=== PATIENT | male | born 1955 | race Caucasian/White ===

== ENCOUNTER 2018-08-02 22:25 | Emergency (ER) | payer SELFPAY ==
--- NOTE | 2018-08-02 22:47 | EDPHY ---
H & P Stated Complaint: G tube pulled out Time Seen by Provider: 08/02/18 22:31 HPI/ROS: HPI The patient presents with peg tube displacement which occurred at about 21:45 today. He was sleeping on a new mattress and slipped on a slippery surface falling out of bed. Nurses suspect that during this time tube was dislodged. The patient has no complaints. He receives Jevity tube feeds multiple times a day for dysphasia related to recent ischemic CVA. It appears that he has been at [facility] as for the past several weeks recovering from his CVA. He is brought in by ambulance. REVIEW OF SYSTEMS 10 systems were reviewed and negative with the exception of the elements mentioned in the history of present illness. PMHx: History of CVA with resultant dysphagia, aphasia, cortical blindness, hypertension, history of AAA Soc Hx: Currently resides at [facility], history of smoking PHYSICAL General Appearance: Alert, no distress Eyes: Pupils equal and round no pallor or injection ENT, Mouth: Mucous membranes moist Respiratory: There are no retractions, lungs are clear to auscultation Cardiovascular: Regular rate and rhythm Gastrointestinal: Abdomen is soft and non-tender, stoma site to left of midline measures about 5 mm with surrounding erythema Neurological: Alert, disoriented, moves all extremities Skin: Warm and dry, no rashes Musculoskeletal: Neck is supple non tender Extremities: symmetrical, full range of motion Psychiatric: there is no agitation Source: Patient, [facility] records, Old records Exam Limitations: Physical impairment - Personal History Current Tetanus Diphtheria and Acellular Pertussis (TDAP): Yes - Medical/Surgical History Hx Asthma: No Hx Chronic Respiratory Disease: No Hx Diabetes: No Hx Cardiac Disease: No Hx Renal Disease: No Hx Cirrhosis: No Hx Alcoholism: No Hx HIV/AIDS: No Hx Splenectomy or Spleen Trauma: No Other PMH: AAA repair, Cerebral infarct, dysphagia, cortical blindness, aphasia , HTN - Social History Smoking Status: Unknown if ever smoked Constitutional: Initial Vital Signs Heart Rate 96 08/02/18 22:31 Respiratory Rate 16 08/02/18 22:31 Blood Pressure 150/85 H 08/02/18 22:31 O2 Sat (%) 96 08/02/18 22:31 O2 Delivery Mode Room Air Allergies/Adverse Reactions: No Known Allergies Allergy (Unverified 08/02/18 22:36) Home Medications: Medication Instructions Recorded Amlodipine Besylate 08/02/18 Aspirin 81mg (*) 08/02/18 Pantoprazole Sodium 08/02/18 Medical Decision Making - Diagnostics Imaging Results: Imaging Impressions Abdomen X-Ray 08/02/18 23:00 Impression: 1. Gastrostomy tube in gastric lumen. 2. No extravasation of contrast or bowel obstruction. Imaging: Discussed imaging studies w/ news wire photo operator Radiologist, I viewed and interpreted images myself Procedures: Peg tube replacement. Procedure: Skin was prepped with alcohol. A PEG tube, 24 [place] was inserted using ample Surgilube without difficulty into the stoma. KUB was obtained demonstrating proper placement of PEG tube. Differential Diagnosis: 63-year-old man, resident of [facility] with PEG tube in place due to dysphagia from recent CVA presents with dislodgement of PEG tube during a fall out of his bed. He does not appear to have sustained any other injuries during this time. In the emergency department, PEG tube was replaced by me without difficulty. [facility] Departure - Departure Disposition: Home, Routine, Self-Care Clinical Impression: PEG tube malfunction Condition: Good Instructions: How to Use and Care for Your PEG Tube (ED), Tube Feeding (DC) Referrals: JASON QUARLES [Primary Care Provider] - As per Instructions
[2018-08-03 00:17] VITALS: BP 146/82
== END 2018-08-03 00:17 | disposition home or self-care (01) ==
LOC: EDUNIT#
PROC: 0DH63UZ Insertion of Feeding Device into Stomach, Percutaneous Approach (ICD-10-PCS; principal; 2018-08-02)
DX: K94.23 Gastrostomy malfunction (principal); W06.XXXA Fall from bed, initial encounter; Y93.84 Activity, sleeping; Y92.89 Other specified places as the place of occurrence of the external cause

== ENCOUNTER 2018-08-18 11:54 | Emergency (ER) | payer SELFPAY ==
[2018-08-18 12:37] LABS: PLATELET COUNT 387 10^3/uL (150-400)
[2018-08-18] MEDS ORDERED: NS 1,000 ML IV ONE (12:42)
--- NOTE | 2018-08-18 12:45 | EDPHY ---
HPI/HX/ROS/PE/MDM Narrative: CLINICAL IMPRESSION: Possible GI bleed with normal ED evaluation ASSESSMENT/PLAN: 63-year-old male presents to the emergency department by ambulance from [facility] where he is recovering from a cerebral ischemic stroke for concerns of possible GI bleed. There are conflicting reports from [facility] that patient had coffee-ground emesis this morning although patient reports to me that he has had no vomiting, and he has no clinical signs of hematemesis or intraoral bleeding. Stools are soft brown with no evidence of melena. Abdomen is soft with no focal peritoneal findings. Vital signs are stable, no tachycardia or hypotension. Patient is mildly anemic with no prior labs available for comparison. J-tube in place with no evidence of infection or bleeding. Patient reports no epistaxis. He has no physical complaints on exam. I recommended follow-up with primary care, close observation at [facility], warning signs return to ED sooner outlined and discharge. DIFFERENTIAL DX: Differential diagnosis includes but not limited to GI bleed, weakness, dehydration, acute abdominal pain ED PROCEDURES: See lab results below CHIEF COMPLAINT: Possible GI bleed HPI: This is a 63-year-old male with past history of cerebellar CVA, currently residing at [facility], presents to the emergency department by ambulance today with concerns of a"possible GI bleed". According to EMS, there was apparently some concern about coffee ground emesis earlier this morning. Patient did not arrive in the ED until nearly 11 30. He has no physical complaints on arrival. He reports he has not vomited. He is incontinent and wears a diaper but does not report any bloody stools. He receives J-tube feeds and has not noted any bloody discharge from his tube. No reports of abdominal pain, fever, chest pain or shortness of breath. PMH: AAA repair, cerebral infarct, dysphagia, cortical blindness, aphasia, hypertension Pertinent Past Surgical History: AAA repair, J tube Family History: Unable to obtain Social History: Currently resides at [facility], very poor historian REVIEW OF SYSTEMS: All other systems negative Constitutional: No fever, no chills, appetite change. ENT: No epistaxis or sore throat Cardiovascular: No chest pain, no palpitations. Respiratory: No cough, no shortness of breath. Gastrointestinal: No abdominal pain, no vomiting, diarrhea. Genitourinary: No hematuria, dysuria, flank pain, pelvic pain Musculoskeletal: No back pain, joint swelling, joint pain, myalgias. Skin: No rashes, color change. Neurological: No headache, dizziness, weakness. PHYSICAL EXAM: General Appearance: Alert, oriented, appropriate, cooperative, NAD, well hydrated, non-toxic appearing, VSS, no hypoxia, very poor historian. HEENT: Oropharynx clear is no erythema or exudates, no tonsillar hypertrophy or asymmetry. Dentition without abnormality. Neck: Supple, nontender, no lymphadenopathy, no midline pain, FROM, no meningismus. Respiratory: There are no retractions, lungs are clear to auscultation. Cardiac: Regular rate and rhythm, no murmurs or gallops. Gastrointestinal: Abdomen is soft, nontender, bowel sounds normal, no masses/ hernia, no rigidity, guarding or focal peritoneal findings. J-tube without signs of infection or bloody discharge. Patient is wearing a diaper. No evidence of lower GI bleed. Soft brown stool at the rectum. Neurological: Alert, disoriented, very poor historian likely secondary to cerebral infarct Skin: Warm, dry, no rashes, no nodules on palpation, no pallor. Musculoskeletal: Extremities are symmetrical, full range of motion, no tenderness, deformity, swelling, or erythema. MEDICAL DECISION MAKING: Patient was seen independently. Secondary supervising physician at time of evaluation was Dr. Quach . Diagnosis: Normal ED examination . New, requires workup Summary: See Assessment and Plan for summary of ED visit Clinical lab tests: ordered / reviewed. Patient Progress: Stable. - Data Points Laboratory Results: Laboratory Results 08/18/18 12:00 08/18/18 12:00 08/18/18 08/18/18 12:00 12:00 WBC 9.59 10^3/uL H 10^3/uL (3.80-9.50) RBC 3.43 10^6/uL L 10^6/uL (4.40-6.38) Hgb 10.4 g/dL L g/dL (13.7-17.5) Hct 31.4 % L % (40.0-51.0) MCV 91.5 fL fL (81.5-99.8) MCH 30.3 pg pg (27.9-34.1) MCHC 33.1 g/dL g/dL (32.4-36.7) RDW 14.9 % % (11.5-15.2) Plt Count 387 10^3/uL 10^3/uL (150-400) MPV 9.6 fL fL (8.7-11.7) Neut % (Auto) 82.1 % H % (39.3-74.2) Lymph % (Auto) 8.3 % L % (15.0-45.0) [place] % (Auto) 6.3 % % (4.5-13.0) Eos % (Auto) 2.2 % % (0.6-7.6) Baso % (Auto) 0.8 % % (0.3-1.7) Nucleat RBC Rel Count 0.0 % % (0.0-0.2) Absolute Neuts (auto) 7.87 10^3/uL H 10^3/uL (1.70-6.50) Absolute Lymphs (auto) 0.80 10^3/uL L 10^3/uL (1.00-3.00) Absolute Monos (auto) 0.60 10^3/uL 10^3/uL (0.30-0.80) Absolute Eos (auto) 0.21 10^3/uL 10^3/uL (0.03-0.40) Absolute Basos (auto) 0.08 10^3/uL 10^3/uL (0.02-0.10) Absolute Nucleated RBC 0.00 10^3/uL 10^3/uL (0-0.01) Immature Gran % 0.3 % % (0.0-1.1) Immature Gran # 0.03 10^3/uL 10^3/uL (0.00-0.10) Sodium 135 mEq/L mEq/L (135-145) Potassium 4.0 mEq/L mEq/L (3.3-5.0) Chloride 98 mEq/L mEq/L (97-110) Carbon Dioxide 28 mEq/l mEq/l (22-31) Anion Gap 9 mEq/L mEq/L (6-14) BUN 21 mg/dL mg/dL (7-23) Creatinine 0.8 mg/dL mg/dL (0.7-1.3) Estimated GFR > 60 Glucose 96 mg/dL mg/dL (70-100) Calcium 9.1 mg/dL mg/dL (8.5-10.4) General Time Seen by Provider: 08/18/18 12:34 Initial Vital Signs: Initial Vital Signs Temperature (C) 37.2 C 08/18/18 12:05 Heart Rate 96 08/18/18 12:05 Respiratory Rate 16 08/18/18 12:05 Blood Pressure 147/96 H 08/18/18 12:05 O2 Sat (%) 94 08/18/18 12:05 O2 Delivery Mode Room Air Allergies/Adverse Reactions: No Known Allergies Allergy (Unverified 08/02/18 22:36) Home Medications: Medication Instructions Recorded Amlodipine Besylate 08/02/18 Aspirin 81mg (*) 08/02/18 Pantoprazole Sodium 08/02/18 Ativan 08/18/18 Departure - Departure Disposition: Home, Routine, Self-Care Clinical Impression: Normal physical exam, Anemia, mild Condition: Good Instructions: Normal Exam (ED) Additional Instructions: DISCHARGE INSTRUCTIONS FROM YOUR DOCTOR Thank you for visiting our emergency department today. Please keep in mind that discharge from the emergency department does not mean that there is nothing wrong - it simply means that we have not identified an emergency condition that requires further evaluation or treatment in the hospital. You should always plan to follow up with primary care for re-evaluation of your condition in the next 2-3 days. If you have been referred to a specialist, please call as soon as possible (today or tomorrow) to schedule your follow up appointment at the appropriate time. We did not find any dangerous lab abnormalities today or evidence of an acute GI bleed. You have mild anemia and we recommend you have a CBC rechecked in 1 week. There are no clinical concerns to suggest the need for an emergent endoscopy or colonoscopy today. Please monitor closely at [facility]. Follow up with primary care. Return to the emergency department immediately for blood in your stools, vomiting blood or coffee grounds, dark black tarry stools, abdominal pain, fever or chills, bleeding from your J-tube or any other concerns. People present with illnesses and injuries in different ways, and it is always possible that we have missed something. You may always return for re-evaluation if symptoms worsen or if they are not improving or if you develop new/different symptoms. Again, thank you for choosing our emergency department. We hope that you feel better. Referrals: Patient,NotPresent [Unknown] - As per Instructions Kavitha Garrido MD [[facility] Primary Care Provider] - As per Instructions
--- NOTE | 2018-08-18 14:28 | ASMTCMCOM ---
CM Note CM Note Notes: Spoke with Dejah Kay to confirm patient would be returning to [facility]. Dejah authorizes [facility] to bill for return transport. Transport arranged with [facility] for a 1500 curing pickling packer. Mady CHAVEZ to call report upon discharge Date Signed: 08/18/2018 02:27 PM Electronically Signed By:Miracle Gray RN
[2018-08-18 14:45] VITALS: BP 135/74
== END 2018-08-18 14:51 | disposition home or self-care (01) ==
LOC: EDUNIT#
DX: Z00.00 Encounter for general adult medical examination without abnormal findings (principal); Z86.73 Personal history of transient ischemic attack (TIA), and cerebral infarction without residual deficits; D64.9 Anemia, unspecified; E86.9 Volume depletion, unspecified

== ENCOUNTER 2018-09-09 13:37 | Emergency (ER) | payer MEDICAID ==
--- NOTE | 2018-09-09 14:35 | EDPHY ---
H & P Stated Complaint: G-tube leaking per [facility] Time Seen by Provider: 09/09/18 14:33 HPI/ROS: Chief Complaint: Leaking G-tube HPI: The patient is referred to the ED for evaluation of a leaking G-tube. The patient has had a chronic PEG tube for some time. He denies any acute abdominal pain or other acute complaints. REVIEW OF SYSTEMS: Neuro: no headache, numbness, weakness Musculoskeletal: as above Skin: no abrasion or lacerations Source: Patient Exam Limitations: No limitations - Personal History Current Tetanus/Diphtheria Vaccine: Unsure Current Tetanus Diphtheria and Acellular Pertussis (TDAP): Unsure - Medical/Surgical History Hx Asthma: No Hx Chronic Respiratory Disease: No Hx Diabetes: No Hx Cardiac Disease: No Hx Renal Disease: No Hx Cirrhosis: No Hx Alcoholism: No Hx HIV/AIDS: No Hx Splenectomy or Spleen Trauma: No Other PMH: AAA repair, Cerebral infarct, dysphagia, cortical blindness, aphasia , HTN, CKD - Social History Smoking Status: Unknown if ever smoked - Physical Exam Exam: General Appearance: Alert, no distress Eyes: Pupils equal and round no pallor or injection ENT, Mouth: Mucous membranes moist Respiratory: There are no retractions, lungs are clear to auscultation Cardiovascular: Regular rate and rhythm Gastrointestinal: Abdomen is soft and nontender, no masses, bowel sounds normal , G-tube intact Skin: Warm and dry, no rashes Musculoskeletal: Neck is supple nontender Extremities: symmetrical, full range of motion Constitutional: Initial Vital Signs Temperature (C) 35 C L 09/09/18 13:42 Heart Rate 95 09/09/18 13:42 Blood Pressure 147/95 H 09/09/18 13:42 O2 Sat (%) 97 09/09/18 13:42 O2 Delivery Mode Room Air Allergies/Adverse Reactions: No Known Allergies Allergy (Unverified 08/02/18 22:36) Home Medications: Medication Instructions Recorded Amlodipine Besylate 08/02/18 Aspirin 81mg (*) 08/02/18 Pantoprazole Sodium 08/02/18 Ativan 08/18/18 Medical Decision Making ED Course/Re-evaluation: The patient has some leaking around his G-tube. As I inspected the bolster his slid back. I repositioned the bolster. The balloon is currently inflated with 10 mL of normal saline. This was checked by myself in the emergency department. I am able to flush the tube and is patent. The patient will be [facility] to his [facility]. Departure - Departure Disposition: Home, Routine, Self-Care Clinical Impression: Malfunction of gastrostomy tube Condition: Good Instructions: How to Use and Care for Your PEG Tube (ED) Additional Instructions: 1. The bolster on your G-tube was adjusted in the emergency department today. It is no longer leaking. Referrals: JASON QUARLES [Primary Care Provider] - As per Instructions
[2018-09-09 15:19] VITALS: BP 109/59
== END 2018-09-09 15:31 | disposition home or self-care (01) ==
LOC: EDUNIT#
DX: K94.23 Gastrostomy malfunction (principal); I12.9 Hypertensive chronic kidney disease with stage 1 through stage 4 chronic kidney disease, or unspecified chronic kidney disease; N18.9 Chronic kidney disease, unspecified; Z86.73 Personal history of transient ischemic attack (TIA), and cerebral infarction without residual deficits

== ENCOUNTER 2018-09-27 02:40 | Inpatient (IN) | payer MEDICAID ==
[2018-09-27] MEDS ORDERED: ACETAMINOPHEN 500 MG TAB PO ONE (02:51)
[2018-09-27] MEDS ORDERED: NS 1,000 ML IV ONE ×2 (02:51→04:15)
[2018-09-27] MEDS ORDERED: ACETAMINOPHEN 650 MG SUPP PR ONE (02:52)
--- NOTE | 2018-09-27 02:52 | EDPHY ---
H & P Time Seen by Provider: 09/27/18 02:46 HPI/ROS: Chief Complaint: Vomiting HPI: 63-year-old male with a complex medical history including ruptured AAA repair, CVA. Patient has a history of aphasia and is intermediate bound. Normally is oriented to name only. This morning he was found to having had multiple episodes of dark bilious vomiting. Patient is noted to be tachycardic and felt febrile was brought in for further evaluation. He denies abdominal pain. Is complaining of nausea. He does have a G-tube in place. He is a resident of [facility]. Most form indicates no CPR but he is for selective treatment. He is awake alert and answering some questions for me. ROS: Difficult to obtain secondary to the patient's baseline mental status PMH: AAA rupture status post repair, CVA, cortical blindness, expressive aphasia, G-tube Social History: No smoking, no alcohol, no recreational drug use Family History: non-contributory Physical Exam: Gen: Awake, Alert, No Distress HEENT: Nose: no rhinorrhea Eyes: PERRLA, EOMI Mouth: Very dry oral mucosa Neck: Supple, no JVD Chest: nontender, lungs clear to auscultation Heart: S1, S2 normal, no murmur Abd: Soft, nontender, G-tube in place, site clean, no crusting discharge bleeding or erythema, no guarding Back: no CVA tenderness, no midline tenderness Ext: no edema, non-tender Skin: no rash Neuro: CN II-XII intact, Sensation grossly intact, Strength 5/5 in bilateral upper and lower extremities - Medical/Surgical History Hx Asthma: No Hx Chronic Respiratory Disease: No Hx Diabetes: No Hx Cardiac Disease: No Hx Renal Disease: No Hx Cirrhosis: No Hx Alcoholism: No Hx HIV/AIDS: No Hx Splenectomy or Spleen Trauma: No Other PMH: AAA repair, Cerebral infarct, dysphagia, cortical blindness, aphasia , HTN, CKD - Social History Smoking Status: Unknown if ever smoked Constitutional: Initial Vital Signs Temperature (C) 40.2 C H 09/27/18 02:47 Heart Rate 136 H 09/27/18 02:47 Respiratory Rate 18 09/27/18 02:47 Blood Pressure 144/96 H 09/27/18 02:47 O2 Sat (%) 98 09/27/18 02:47 O2 Delivery Mode Nasal Cannula O2 (L/minute) 2 Allergies/Adverse Reactions: No Known Allergies Allergy (Verified 09/27/18 02:45) Home Medications: Medication Instructions Recorded Amlodipine Besylate 08/02/18 Aspirin 81mg (*) 08/02/18 Pantoprazole Sodium 08/02/18 Ativan 08/18/18 Medical Decision Making ED Course/Re-evaluation: 63-year-old male presenting febrile and tachycardic with dehydration and vomiting from the intermediate. He meets SIRS to SIRS criteria. Have embarked down the sepsis pathway. Initial lactic acid 2.1. Patient meets criteria for severe sepsis. Fluids ordered. Patient's per family dehydrated. Heart rate improving. Abdomen is soft and benign. He has brown stool. No evidence of bleeding at this time. Station HR bit low however looking his prior records he was here the July with possible GI bleeding and his H&H have improved since that point. Patient is complaining of nausea. He is febrile. I do not see any focal source of bacterial infection. I think his tachycardia is secondary to his dehydration and fever. I discussed with Dr. Faria. Will hold off on antibiotics at this time. Will continue to hydrate and obtain an abdominal x-ray to evaluate for possible obstruction. Plan will be to admit to the PCU. - Data Points Laboratory Results: Laboratory Results 09/27/18 02:50 09/27/18 02:50 09/27/18 09/27/18 09/27/18 03:55 03:30 03:15 WBC RBC Hgb Hct MCV MCH MCHC RDW Plt Count MPV Neut % (Auto) Lymph % (Auto) [place] % (Auto) Eos % (Auto) Baso % (Auto) Nucleat RBC Rel Count Absolute Neuts (auto) Absolute Lymphs (auto) Absolute Monos (auto) Absolute Eos (auto) Absolute Basos (auto) Absolute Nucleated RBC Immature Gran % Immature Gran # RBC/WBC/PLT Morphology Platelet Estimate PT INR APTT VBG Lactic Acid 1.0 mmol/L mmol/L (0.7-2.1) Sodium Potassium Chloride Carbon Dioxide Anion Gap BUN Creatinine Estimated GFR Glucose Calcium Total Bilirubin Urine Color YELLOW Urine Appearance HAZY Urine pH 5.0 (5.0-7.5) Ur Specific [place] 1.021 (1.002-1.030) Urine Protein 1+ H (NEGATIVE) Urine Ketones NEGATIVE (NEGATIVE) Urine Blood NEGATIVE (NEGATIVE) Urine Nitrate NEGATIVE (NEGATIVE) Urine Bilirubin NEGATIVE (NEGATIVE) Urine Urobilinogen 2.0 EU H EU (0.2-1.0) Ur Leukocyte Esterase NEGATIVE (NEGATIVE) Urine RBC 5-10 /hpf H /hpf (0-3) Urine WBC 1-3 /hpf /hpf (0-3) Ur Epithelial Cells TRACE /lpf /lpf (NONE-1+) Hyaline Casts 1-5 /lpf /lpf (0-1) Urine Mucus TRACE /lpf /lpf (NONE-1+) Urine Glucose NEGATIVE (NEGATIVE) Nasal Influenza A PCR Pending Nasal Influenza B PCR Pending 09/27/18 09/27/18 09/27/18 02:50 02:50 02:50 WBC 11.57 10^3/uL H 10^3/uL (3.80-9.50) RBC 3.70 10^6/uL L 10^6/uL (4.40-6.38) Hgb 11.0 g/dL L g/dL (13.7-17.5) Hct 32.7 % L % (40.0-51.0) MCV 88.4 fL fL (81.5-99.8) MCH 29.7 pg pg (27.9-34.1) MCHC 33.6 g/dL g/dL (32.4-36.7) RDW 14.7 % % (11.5-15.2) Plt Count 369 10^3/uL 10^3/uL (150-400) MPV 10.1 fL fL (8.7-11.7) Neut % (Auto) 93.9 % H % (39.3-74.2) Lymph % (Auto) 2.2 % L % (15.0-45.0) [place] % (Auto) 2.7 % L % (4.5-13.0) Eos % (Auto) 0.6 % % (0.6-7.6) Baso % (Auto) 0.3 % % (0.3-1.7) Nucleat RBC Rel Count 0.0 % % (0.0-0.2) Absolute Neuts (auto) 10.86 10^3/uL H 10^3/uL (1.70-6.50) Absolute Lymphs (auto) 0.25 10^3/uL L 10^3/uL (1.00-3.00) Absolute Monos (auto) 0.31 10^3/uL 10^3/uL (0.30-0.80) Absolute Eos (auto) 0.07 10^3/uL 10^3/uL (0.03-0.40) Absolute Basos (auto) 0.03 10^3/uL 10^3/uL (0.02-0.10) Absolute Nucleated RBC 0.00 10^3/uL 10^3/uL (0-0.01) Immature Gran % 0.3 % % (0.0-1.1) Immature Gran # 0.03 10^3/uL 10^3/uL (0.00-0.10) RBC/WBC/PLT Morphology TNP Platelet Estimate TNP PT 13.1 SEC SEC (12.0-15.0) INR 0.97 (0.83-1.16) APTT 34.9 SEC SEC (23.0-38.0) VBG Lactic Acid Sodium 133 mEq/L L mEq/L (135-145) Potassium 4.5 mEq/L mEq/L (3.5-5.2) Chloride 100 mEq/L mEq/L (97-110) Carbon Dioxide 22 mEq/l mEq/l (22-31) Anion Gap 11 mEq/L mEq/L (6-14) BUN 29 mg/dL H mg/dL (7-23) Creatinine 1.0 mg/dL mg/dL (0.7-1.3) Estimated GFR > 60 Glucose 107 mg/dL H mg/dL (70-100) Calcium 8.9 mg/dL mg/dL (8.5-10.4) Total Bilirubin 0.7 mg/dL mg/dL (0.1-1.4) Urine Color Urine Appearance Urine pH Ur Specific [place] Urine Protein Urine Ketones Urine Blood Urine Nitrate Urine Bilirubin Urine Urobilinogen Ur Leukocyte Esterase Urine RBC Urine WBC Ur Epithelial Cells Hyaline Casts Urine Mucus Urine Glucose Nasal Influenza A PCR Nasal Influenza B PCR 09/27/18 02:50 WBC RBC Hgb Hct MCV MCH MCHC RDW Plt Count MPV Neut % (Auto) Lymph % (Auto) [place] % (Auto) Eos % (Auto) Baso % (Auto) Nucleat RBC Rel Count Absolute Neuts (auto) Absolute Lymphs (auto) Absolute Monos (auto) Absolute Eos (auto) Absolute Basos (auto) Absolute Nucleated RBC Immature Gran % Immature Gran # RBC/WBC/PLT Morphology Platelet Estimate PT INR APTT VBG Lactic Acid 2.1 mmol/L mmol/L (0.7-2.1) Sodium Potassium Chloride Carbon Dioxide Anion Gap BUN Creatinine Estimated GFR Glucose Calcium Total Bilirubin Urine Color Urine Appearance Urine pH Ur Specific [place] Urine Protein Urine Ketones Urine Blood Urine Nitrate Urine Bilirubin Urine Urobilinogen Ur Leukocyte Esterase Urine RBC Urine WBC Ur Epithelial Cells Hyaline Casts Urine Mucus Urine Glucose Nasal Influenza A PCR Nasal Influenza B PCR Medications Given: Discontinued Medications Acetaminophen (Tylenol) 1,000 mg PO EDNOW ONE Stop: 09/27/18 02:52 Last Admin: 09/27/18 02:54 Dose: 1,000 mg Sodium Chloride (Ns) 1,000 mls @ 0 mls/hr IV ONCE ONE; Wide Open PRN Reason: Protocol Stop: 09/27/18 02:52 Last Admin: 09/27/18 02:59 Dose: 1,000 mls Sodium Chloride (Ns) 2,000 mls @ 4,000 mls/hr 30 ml/kg infuse over 30 min ( 2000 ml) IV EDNOW ONE PRN Reason: Protocol Stop: 09/27/18 03:30 Last Admin: 09/27/18 03:14 Dose: 1,000 mls Ondansetron HCl (Zofran) 4 mg IVP EDNOW ONE Stop: 09/27/18 03:10 Last Admin: 09/27/18 03:15 Dose: 4 mg Departure - Departure Disposition: [facility] Clinical Impression: Vomiting, Fever, Dehydration Condition: Fair Referrals: JASON QUARLES [Primary Care Provider] - As per Instructions
[2018-09-27] MEDS ORDERED: NS 2,000 ML IV ONE ×2 (03:01)
[2018-09-27 03:02] LABS: PLATELET COUNT 369 10^3/uL (150-400)
[2018-09-27] MEDS ORDERED: ONDANSETRON 4 MG/2 ML VIAL ONE ×2 (03:03→03:10)
[2018-09-27] MEDS ORDERED: ONDANSETRON 4 MG/2 ML VIAL IVP ONE ×2 (03:09→03:10)
[2018-09-27 03:11] LABS: INR 0.97 (0.83-1.16); PROTIME(PATIENT) 13.1 SEC (12.0-15.0)
[2018-09-27] MEDS ORDERED: ACETAMINOPHEN 325 MG TAB PO PRN (04:10)
[2018-09-27] MEDS ORDERED: ONDANSETRON DISINTEGRATING 4 MG TAB PO PRN (04:10)
--- NOTE | 2018-09-27 04:45 | PDGENHP ---
History and Physical - Chief Complaint Fever, vomiting - History of Present Illness 63 yo M w/ hx of CVA presents with reports of fever and vomiting. The patient resides at [facility] and was sent to ED for the stated complaints. He is not able to provide much additional history as he appears to have very poor memory. He is A&x0 on my evaluation. He tells me he is not in pain and denies any complaints. However, he cannot remember what happened today. In the ED his evaluation is notable for dehydration, tachycardia, and fever. His abdomen is soft. CXR is clear and UA non-infectious. He is being admitted for observation of suspected viral infection. History Information - Allergies/Home Medication List Allergies/Adverse Reactions: No Known Allergies Allergy (Verified 09/27/18 02:45) Home Medications: Amlodipine Besylate 08/02/18 [Last Taken Unknown] Aspirin 81mg (*) 08/02/18 [Last Taken Unknown] Pantoprazole Sodium 08/02/18 [Last Taken Unknown] Ativan 08/18/18 [Last Taken Unknown] I have personally reviewed and updated: family history, medical history - Past Medical History CVA - Surgical History Additional surgical history: AAA repair - Family History Additional family history: Patient unable to provide - Social History Smoking Status: Unknown if ever smoked Review of Systems Review of Systems: ROS: 10pt was reviewed & negative except for what was stated in HPI & below Physical Exam Physical Exam: Temp Pulse Resp BP Pulse Ox 38.9 C H 116 H 22 H 119/66 93 09/27/18 04:31 09/27/18 04:31 09/27/18 04:31 09/27/18 04:31 09/27/18 04:31 O2 (L/minute) 2 Constitutional: no apparent distress, not in pain Eyes: PERRL, EOMI Ears, Nose, Mouth, Throat: moist mucous membranes, no oral mucosal ulcers Cardiovascular: no murmur, rub, or gallop, tachycardia Respiratory: no respiratory distress, clear to auscultation Gastrointestinal: normoactive bowel sounds, soft, non-tender abdomen, other (G- tube in place) Skin: warm, normal color Musculoskeletal: full muscle strength, no muscle tenderness Neurologic: other (A&Ox0, blind) Psychiatric: interacting appropriately, poor insight, poor memory Lab Data & Imaging Review 09/27/18 02:50 09/27/18 02:50 WBC 11.57 10^3/uL (3.80-9.50) H 09/27/18 02:50 RBC 3.70 10^6/uL (4.40-6.38) L 09/27/18 02:50 Hgb 11.0 g/dL (13.7-17.5) L 09/27/18 02:50 Hct 32.7 % (40.0-51.0) L 09/27/18 02:50 MCV 88.4 fL (81.5-99.8) 09/27/18 02:50 MCH 29.7 pg (27.9-34.1) 09/27/18 02:50 MCHC 33.6 g/dL (32.4-36.7) 09/27/18 02:50 RDW 14.7 % (11.5-15.2) 09/27/18 02:50 Plt Count 369 10^3/uL (150-400) 09/27/18 02:50 MPV 10.1 fL (8.7-11.7) 09/27/18 02:50 Neut % (Auto) 93.9 % (39.3-74.2) H 09/27/18 02:50 Lymph % (Auto) 2.2 % (15.0-45.0) L 09/27/18 02:50 [place] % (Auto) 2.7 % (4.5-13.0) L 09/27/18 02:50 Eos % (Auto) 0.6 % (0.6-7.6) 09/27/18 02:50 Baso % (Auto) 0.3 % (0.3-1.7) 09/27/18 02:50 Nucleat RBC Rel Count 0.0 % (0.0-0.2) 09/27/18 02:50 Absolute Neuts (auto) 10.86 10^3/uL (1.70-6.50) H 09/27/18 02:50 Absolute Lymphs (auto) 0.25 10^3/uL (1.00-3.00) L 09/27/18 02:50 Absolute Monos (auto) 0.31 10^3/uL (0.30-0.80) 09/27/18 02:50 Absolute Eos (auto) 0.07 10^3/uL (0.03-0.40) 09/27/18 02:50 Absolute Basos (auto) 0.03 10^3/uL (0.02-0.10) 09/27/18 02:50 Absolute Nucleated RBC 0.00 10^3/uL (0-0.01) 09/27/18 02:50 Immature Gran % 0.3 % (0.0-1.1) 09/27/18 02:50 Immature Gran # 0.03 10^3/uL (0.00-0.10) 09/27/18 02:50 RBC/WBC/PLT Morphology TNP 09/27/18 02:50 Platelet Estimate TNP 09/27/18 02:50 PT 13.1 SEC (12.0-15.0) 09/27/18 02:50 INR 0.97 (0.83-1.16) 09/27/18 02:50 APTT 34.9 SEC (23.0-38.0) 09/27/18 02:50 VBG Lactic Acid 1.0 mmol/L (0.7-2.1) 09/27/18 03:55 Sodium 133 mEq/L (135-145) L 09/27/18 02:50 Potassium 4.5 mEq/L (3.5-5.2) 09/27/18 02:50 Chloride 100 mEq/L (97-110) 09/27/18 02:50 Carbon Dioxide 22 mEq/l (22-31) 09/27/18 02:50 Anion Gap 11 mEq/L (6-14) 09/27/18 02:50 BUN 29 mg/dL (7-23) H 09/27/18 02:50 Creatinine 1.0 mg/dL (0.7-1.3) 09/27/18 02:50 Estimated GFR > 60 09/27/18 02:50 Glucose 107 mg/dL (70-100) H 09/27/18 02:50 Calcium 8.9 mg/dL (8.5-10.4) 09/27/18 02:50 Total Bilirubin 0.7 mg/dL (0.1-1.4) 09/27/18 02:50 Urine Color YELLOW 09/27/18 03:30 Urine Appearance HAZY 09/27/18 03:30 Urine pH 5.0 (5.0-7.5) 09/27/18 03:30 Ur Specific Oliver 1.021 (1.002-1.030) 09/27/18 03:30 Urine Protein 1+ (NEGATIVE) H 09/27/18 03:30 Urine Ketones NEGATIVE (NEGATIVE) 09/27/18 03:30 Urine Blood NEGATIVE (NEGATIVE) 09/27/18 03:30 Urine Nitrate NEGATIVE (NEGATIVE) 09/27/18 03:30 Urine Bilirubin NEGATIVE (NEGATIVE) 09/27/18 03:30 Urine Urobilinogen 2.0 EU (0.2-1.0) H 09/27/18 03:30 Ur Leukocyte Esterase NEGATIVE (NEGATIVE) 09/27/18 03:30 Urine RBC 5-10 /hpf (0-3) H 09/27/18 03:30 Urine WBC 1-3 /hpf (0-3) 09/27/18 03:30 Ur Epithelial Cells TRACE /lpf (NONE-1+) 09/27/18 03:30 Hyaline Casts 1-5 /lpf (0-1) 09/27/18 03:30 Urine Mucus TRACE /lpf (NONE-1+) 09/27/18 03:30 Urine Glucose NEGATIVE (NEGATIVE) 09/27/18 03:30 Nasal Influenza A PCR NEGATIVE FOR FLU A (NEGATIVE) 09/27/18 03:15 Nasal Influenza B PCR NEGATIVE FOR FLU B (NEGATIVE) 09/27/18 03:15 Visualized and Interpreted Chest x-ray results: Yes Chest X-Ray results: no infiltrate Assessment & Plan Assessment: 63 yo M presents with fever, dehydration, and vomiting. Plan: 1. Sepsis - Most likely viral etiology noting vomiting as only objective symptom. History is complicated by patient's poor memory and insight. CXR ( personally reviewed/interpreted) does not demonstrate infiltrate; UA non- infectious. His abdominal exam is reassuring. - Observe off of antibiotics - Blood cultures pending - Continue IVF - Respiratory PCR, procalcitonin ordered - Low threshold to start antibiotics if worsening 2. Hx CVA - Complicated by cortical blindness and dysphagia, aphasia, and poor memory. - Dietary consult for tube feeds 3. Anemia - Stable from prior values; there was some concern initially about hematemesis but this seems unlikely after a period of observation. - Monitor CBC daily - Monitor on telemetry 4. Hyponatremia - Mild, likely due to dehydration. - IVF 5. HTN - Hold amlodipine pending resolution of infection. Diet - NPO, TFs Code - DNR per MOST form Ppx - SCDs Dispo - Admit under observation status
[2018-09-27] MEDS: NS 1,000 ML IV SCH ×2 (08:43→17:17)
[2018-09-27] MEDS: ONDANSETRON 4 MG/2 ML VIAL IVP PRN ×2 (08:44→17:32)
--- NOTE | 2018-09-27 09:51 | HOSPPROG ---
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 for tube feeds Objective: Vital Signs Temp Pulse Resp BP Pulse Ox 36.3 C 104 H 14 127/73 H 94 09/27/18 08:51 09/27/18 08:51 09/27/18 08:51 09/27/18 08:51 09/27/18 08:51 09/26/18 09/27/18 09/28/18 05:59 05:59 05:59 Intake Total 4116 Output Total 40 Balance 4076 PT 13.1 SEC (12.0-15.0) 09/27/18 02:50 INR 0.97 (0.83-1.16) 09/27/18 02:50 - Physical Exam Constitutional: no apparent distress Cardiovascular: regular rate and rhythym, No tachycardia Respiratory: no respiratory distress, no rales or rhonchi Gastrointestinal: soft, non-tender abdomen Genitourinary: No quiñones in urethra Skin: warm Musculoskeletal: No full muscle strength ICD10 Worksheet Patient Problems: Problems Problem Status Onset Dehydration Acute Fever Acute Vomiting Acute
[2018-09-27] MEDS ORDERED: clonazePAM 0.5 MG TAB PO PRN (11:29)
[2018-09-27] MEDS: ACETAMINOPHEN 650 MG/20.3 ML UDCUP TUBE PRN ×2 (13:49→17:32)
[2018-09-27] MEDS ORDERED: ONDANSETRON DISINTEGRATING 4 MG TAB TUBE PRN (14:00)
--- NOTE | 2018-09-27 15:12 | WOCRNPDOC ---
[facility] Advanced Assessment Note - Skin Integrity Problem, Advanced Assess Left Hip Pressure Injury Dressing Type: Allevyn Life Dressing Description: Clean/Dry, Intact Closure Description: Not Approximated Exudate Amount: None Emma Wound Tissue: Non-blanching Wound Bed Color: [place] Wound Bed Constitution: Smooth Tissue Wound Edges: Attached, Well Defined Site Measurement - Head-to-Toe Length X Width X Depth (cm): 0.5x0.3x0.1, 0.3x0.3x0.1 Pressure Injury Stage: Stage 2 Pressure Injury Present on Admit: Yes Skin Integrity Problem Comment: Patient rolled to his right side with assist from KATHY Ledezma. Melchorvcammy pulled back. Patient with 2 small, partial thickness openings with non-blanching borders circumferentially, along the left iliac crest. This wound presents as a stage 2 pressure injury, present on admission. Wound care will round again later this week. Coccyx Dressing Type: Open to Air Emma Wound Tissue: Intact Site Measurement - Head-to-Toe Length X Width X Depth (cm): [id number] Skin Integrity Problem Comment: Patient rolled to his right side with assist from KATHY Ledezma. It appears patient has some scarring to his coccyx. Patient unable to confirm if he's ever had a wound to this area. Area left open to air for now has patient having frequent, incontinent diarrhea and a dressing would only trap stool to the skin. Wound care will not follow this wound. Right First Toe Blister Dressing Type: Open to Air Closure Description: Approximated Emma Wound Tissue: Dry Wound Bed Constitution: De-roofed Sanguineous blister, Healed Site Measurement - Head-to-Toe Length X Width X Depth (cm): 0.4x0.3xintact Skin Integrity Problem Comment: Patient has what appears to be a nearly healed blood blister to the tip of his right great toe. No fluctuance. Skin dry and intact. Wound care will not continue to round on this wound.
--- NOTE | 2018-09-27 15:28 | ASMTCMCOM ---
CM Note CM Note Notes: Chart reviewed for discharge planning purposes. 63 year old male who has significant hx of CVA and AAA, admitted via ED this am for vomiting. Patient resides at [facility] and will likely return there when medically stable for discharge, CM to follow for needs. referral via [employer]scripts to [facility]. Plan: Likely dc to [facility] when medically cleared for discharge. Date Signed: 09/27/2018 03:27 PM Electronically Signed By:Sharifa Nichole RN
[2018-09-27] MEDS ORDERED: PANTOPRAZOLE SODIUM 40 MG TAB PO SCH (21:00)
[2018-09-28] MEDS ORDERED: NS 500 ML IV ONE (00:33)
[2018-09-28] MEDS: NS 1,000 ML IV SCH ×4 (01:34→20:36)
[2018-09-28] MEDS ORDERED: KETOROLAC 15 MG/1 ML SDV IVP ONE (03:10)
[2018-09-28] MEDS ORDERED: ASPIRIN EC 81 MG TAB PO SCH (09:00)
[2018-09-28] MEDS: LANSOPRAZOLE SUSP 30MG/10ML UDSYR (Adult) TUBE SCH (09:06)
[2018-09-28] MEDS: ACETAMINOPHEN 650 MG/20.3 ML UDCUP TUBE PRN ×2 (09:06→22:58)
[2018-09-28] MEDS: SERTRALINE HCL 50 MG TAB TUBE SCH (09:06)
--- NOTE | 2018-09-28 15:42 | HOSPPROG ---
Hospitalist Progress Note Assessment/Plan: 63 yo M w stroke, aphasia, dysphagia here w norovirus, coronavirus URI, and now likely aspiration pneumonia aspiration: add unasyn cxr w progressive disease norovirus: continue IVF, rectal tube decubiti: folwy, rectal tube these were present on admit code: dnr dispo: inpt Subjective: vomiting overnight. cxr (interp by me) w worsening LLL air space disease Objective: Vital Signs Temp Pulse Resp BP Pulse Ox 36.8 C 79 14 114/71 98 09/28/18 12:55 09/28/18 12:55 09/28/18 12:55 09/28/18 12:55 09/28/18 12:56 Microbiology 09/27/18 10:26 Gastrointestinal Tract Panel (PCR) - Final Stool Norovirus Gi/Gii 09/27/18 08:30 Respiratory Panel (PCR) - Final Nasal, Sinus - Swab Coronavirus [id number] Detected 09/27/18 09/28/18 09/29/18 05:59 05:59 05:59 Intake Total 6060 0 Output Total 1890 Balance 4170 0 PT 13.1 SEC (12.0-15.0) 09/27/18 02:50 INR 0.97 (0.83-1.16) 09/27/18 02:50 - Physical Exam Constitutional: no apparent distress, appears nourished Eyes: PERRL, anicteric sclera Ears, Nose, Mouth, Throat: moist mucous membranes, hearing normal Cardiovascular: regular rate and rhythym, no murmur, rub, or gallop Respiratory: no respiratory distress, other (crackles L base. scrunched up in chair- difficult exam) Gastrointestinal: normoactive bowel sounds, soft, non-tender abdomen Genitourinary: no bladder fullness, quiñones in urethra Skin: warm, normal color Musculoskeletal: No full muscle strength Neurologic: No AAOx3 ICD10 Worksheet Patient Problems: Problems Problem Status Onset Dehydration Acute Fever Acute Vomiting Acute
[2018-09-28] MEDS: AMPICILLIN/SULBACTAM 3 GM in NS 100 ML IV SCH ×2 (16:22→22:53)
--- NOTE | 2018-09-28 16:39 | PDMN ---
Medical Necessity Medical necessity: [facility] M160 Sepsis: 63 yo w/ [facility]x [facility]. Admit to OBS for sepsis suspected viral infection but further dx testing reveals norovirus, coronavirus URI and aspiration pneumonia w/ CXR showing progressive airway disease. Remains on IV fluids as pt cont to vomit overnight, tachycardic overnight >130, temp 39.3c, start and cont IV antibx. Hx CVA, AAA repair. Change to IP status 09/28/18@1544 per MD order as pt requires additional MN for ongoing monitoring and tx of above.
[2018-09-28 16:49] LABS: PLATELET COUNT 275 10^3/uL (150-400)
[2018-09-28] MEDS: ENOXAPARIN 40 MG/0.4 ML SYR SC SCH (17:35)
[2018-09-28] MEDS ORDERED: NS 1,000 ML IV ONE (18:00)
[2018-09-29] MEDS: AMPICILLIN/SULBACTAM 3 GM in NS 100 ML IV SCH ×4 (04:28→22:39)
[2018-09-29 05:06] LABS: PLATELET COUNT 254 10^3/uL (150-400)
[2018-09-29] MEDS: NS 1,000 ML IV SCH ×2 (06:19→16:43)
[2018-09-29] MEDS: ASPIRIN 81 MG CHEWABLE TAB TUBE SCH (09:43)
[2018-09-29] MEDS: ENOXAPARIN 40 MG/0.4 ML SYR SC SCH (09:43)
[2018-09-29] MEDS: SERTRALINE HCL 50 MG TAB TUBE SCH (09:43)
[2018-09-29] MEDS: LANSOPRAZOLE SUSP 30MG/10ML UDSYR (Adult) TUBE SCH (09:43)
--- NOTE | 2018-09-29 16:21 | HOSPPROG ---
Hospitalist Progress Note Assessment/Plan: 63 yo M w stroke, aphasia, dysphagia here w norovirus, coronavirus URI, and now likely aspiration pneumonia aspiration: add unasyn cxr w progressive disease repeat 09/30 norovirus: continue IVF, rectal tube decubiti: quiñones, rectal tube these were present on admit diarrhea: hold tube feeds overnight aspiration: apparently doing ok w thickened liquids hold until diarrhea decreases code: dnr dispo: inpt Subjective: a lot of diarrhea Objective: Vital Signs Temp Pulse Resp BP Pulse Ox 37.0 C 98 18 131/81 H 92 09/29/18 15:52 09/29/18 15:52 09/29/18 15:52 09/29/18 15:52 09/29/18 15:52 Laboratory Results 09/29/18 04:05 09/29/18 04:05 09/28/18 09/29/18 09/30/18 05:59 05:59 05:59 Intake Total 3646 Output Total 1000 25 Balance 2646 -25 PT 13.1 SEC (12.0-15.0) 09/27/18 02:50 INR 0.97 (0.83-1.16) 09/27/18 02:50 - Physical Exam Constitutional: no apparent distress, appears nourished Eyes: PERRL, anicteric sclera Ears, Nose, Mouth, Throat: moist mucous membranes, hearing normal Cardiovascular: regular rate and rhythym, no murmur, rub, or gallop Respiratory: no respiratory distress, no rales or rhonchi, other (crackles L base) Gastrointestinal: normoactive bowel sounds, soft, non-tender abdomen Genitourinary: no bladder fullness, quiñones in urethra Skin: warm Musculoskeletal: No full muscle strength Neurologic: No AAOx3 ICD10 Worksheet Patient Problems: Problems Problem Status Onset Dehydration Acute Fever Acute Vomiting Acute
[2018-09-30] MEDS: AMPICILLIN/SULBACTAM 3 GM in NS 100 ML IV SCH ×4 (04:57→22:58)
[2018-09-30 09:33] LABS: PLATELET COUNT 301 10^3/uL (150-400)
[2018-09-30] MEDS: ENOXAPARIN 40 MG/0.4 ML SYR SC SCH (10:25)
[2018-09-30] MEDS: LANSOPRAZOLE SUSP 30MG/10ML UDSYR (Adult) TUBE SCH (10:25)
[2018-09-30] MEDS: SERTRALINE HCL 50 MG TAB TUBE SCH (10:27)
[2018-09-30] MEDS: ASPIRIN 81 MG CHEWABLE TAB TUBE SCH (10:27)
[2018-09-30] MEDS: POTASSIUM Cl (KCl) 100 ML IV SCH ×4 (10:33→20:37)
[2018-09-30] MEDS ORDERED: PROTOCOL MAGNESIUM 1 DOSE IV PRN (11:26)
[2018-09-30] MEDS ORDERED: PROTOCOL POTASSIUM 1 DOSE MISC PRN (11:26)
--- NOTE | 2018-09-30 12:20 | ASMTCMCOM ---
CM Note CM Note Notes: 09/30/2017 Case Management Note Discussed pt during rounds this morning. On site visit from Hung, benefits representative from [facility]. Updated via [employer]. Anticipating d/c over the weekend. Case Management d/c poc: [facility] where pt resides Case Management to follow. Date Signed: 09/30/2018 12:20 PM Electronically Signed By:Peri Morrissey RN
[2018-09-30] MEDS: clonazePAM 0.5 MG TAB TUBE PRN ×2 (14:23→20:46)
--- NOTE | 2018-09-30 16:50 | HOSPPROG ---
Hospitalist Progress Note Assessment/Plan: 63 yo M w stroke, aphasia, dysphagia here w norovirus, coronavirus URI, and now likely aspiration pneumonia aspiration: add unasyn cxr now w b/l airspace disease (interp by me) hold IVF on RA norovirus: improving restart tube feeds decubiti: quiñones, rectal tube these were present on admit diarrhea: improved restart tube feeds aspiration: apparently doing ok w thickened liquids videoswallow in AM code: dnr dispo: inpt Subjective: decreased diarrhea Objective: Vital Signs Temp Pulse Resp BP Pulse Ox 36.7 C 98 19 149/94 H 91 L 09/30/18 15:42 09/30/18 15:42 09/30/18 15:42 09/30/18 15:42 09/30/18 15:42 Laboratory Results 09/30/18 09:07 09/30/18 09:07 09/29/18 09/30/18 10/01/18 05:59 05:59 05:59 Intake Total 3646 1320 Output Total 1000 2050 Balance 2646 -730 PT 13.1 SEC (12.0-15.0) 09/27/18 02:50 INR 0.97 (0.83-1.16) 09/27/18 02:50 - Physical Exam Constitutional: no apparent distress, appears nourished Eyes: PERRL, anicteric sclera Ears, Nose, Mouth, Throat: moist mucous membranes, hearing normal Cardiovascular: regular rate and rhythym, no murmur, rub, or gallop Respiratory: no respiratory distress, no rales or rhonchi Gastrointestinal: normoactive bowel sounds, soft, non-tender abdomen Genitourinary: quiñones in urethra Skin: warm, normal color Musculoskeletal: full muscle strength ICD10 Worksheet Patient Problems: Problems Problem Status Onset Dehydration Acute Fever Acute Vomiting Acute
[2018-10-01] MEDS ORDERED: POTASSIUM CL 10 MEQ TAB PO ONE ×2 (02:47→10:17)
[2018-10-01] MEDS ORDERED: POTASSIUM CL 20 MEQ/15 ML UDCUP TUBE ONE ×2 (03:00→12:00)
[2018-10-01] MEDS: AMPICILLIN/SULBACTAM 3 GM in NS 100 ML IV SCH ×4 (04:09→22:10)
[2018-10-01] MEDS: LANSOPRAZOLE SUSP 30MG/10ML UDSYR (Adult) TUBE SCH (09:49)
[2018-10-01] MEDS: clonazePAM 0.5 MG TAB TUBE PRN ×2 (09:49→15:31)
[2018-10-01] MEDS: SERTRALINE HCL 50 MG TAB TUBE SCH (09:49)
[2018-10-01] MEDS: ASPIRIN 81 MG CHEWABLE TAB TUBE SCH (09:49)
[2018-10-01] MEDS: ENOXAPARIN 40 MG/0.4 ML SYR SC SCH (09:49)
[2018-10-01] MEDS ORDERED: MAGNESIUM SULF 1 GM/DEXTROSE 100 ML IV ONE (11:14)
--- NOTE | 2018-10-01 13:21 | HOSPPROG ---
Hospitalist Progress Note Assessment/Plan: DIAGNOSES: * Acute norovirus infection with gastroenteritis including significant diarrhea * Dehydration related to that * Acute respiratory infectious illness with frank virus * Acute chest x-ray abnormalities developed here -on my review of x-ray this appears more as a diffuse perihilar bilateral process consistent with either pulmonary edema or possibly viral pneumonia, and without new fever, high white count, or worsening respiratory status I doubt this is aspiration (has had significant IV fluid volumes here) * Anemia, acutely worsening here in the hospital, normocytic -some of the decrease may be due to hydration here but notably his hemoglobin is a fair bit lower than last checked here in July * Recent stroke with dysphagia, has been using feeding tube but now progressing to advancing diet * Hypokalemia and hypomagnesemia likely due to GI losses from above acute infections PLANS: * Recheck chest x-ray today is ordered as well as a procalcitonin * Will consider possible diuresis, possible stopping antibiotics depending on results those tests * Advance diet as per speech language recommendations * Continue potassium and magnesium replacements * Will order iron studies and reticulocyte count, and repeat hemoglobin in the morning * Physical occupational therapy * Will determine timing of return to care home once the respiratory issues are settled in stable see above SUBJECTIVE: Still very weak, but not dyspneic, no chest pain abdominal pain or nausea No fever symptoms OBJECTIVE Vitals reviewed: All stable without fever Production Underwriter, my review: Sinus Exam: alert talkative, disoriented to time place and some of his situation, relaxed skin warm dry color ok resps not labored lungs clear BSs heart regular abd soft nondistended nontender, bowel sounds present limbs warm, no edema iv site ok Laboratory data: No labs today bone review of his previous labs I notice that he has significant anemia that is worse than when he was here in July He still has hypokalemia and hypomagnesemia Imaging: I reviewed his initial chest x-ray in 2 follow-up chest x-rays during this admission. He has developed new bilateral densities that appear to me to be perihilar and alveolar but more in a CHF type pattern. There does not appear to be a infiltrate that I would find typical for aspiration. Could not entirely rule out a viral pneumonia. Objective: Vital Signs Temp Pulse Resp BP Pulse Ox 37.0 C 94 20 148/86 H 95 10/01/18 12:37 10/01/18 12:37 10/01/18 12:37 10/01/18 12:37 10/01/18 12:37 Laboratory Results 09/30/18 09:07 10/01/18 08:53 09/30/18 10/01/18 10/02/18 06:59 06:59 06:59 Intake Total 1320 460 Output Total 2050 825 3 Balance -730 -365 -3 PT 13.1 SEC (12.0-15.0) 09/27/18 02:50 INR 0.97 (0.83-1.16) 09/27/18 02:50 - Time Spent With Patient Time Spent with Patient: greater than 35 minutes Time Spent with Patient: Greater than 35 minutes spent on this patients care, greater than 50% of time spent counseling, educating, and coordinating care regarding the above mentioned plan. ICD10 Worksheet Patient Problems: Problems Problem Status Onset Dehydration Acute Fever Acute Vomiting Acute
--- NOTE | 2018-10-01 14:48 | WOCRNPDOC ---
[facility] Advanced Assessment Note - Skin Integrity Problem, Advanced Assess Left Hip Pressure Injury Dressing Type: Open to Air Closure Description: Approximated Exudate Amount: None Emma Wound Tissue: Blanching, Intact Skin Integrity Problem Comment: Skin completely intact and blanching. Wound care will not continue to round. Please reconsult PRN.
[2018-10-02] MEDS ORDERED: POTASSIUM CL 20 MEQ/15 ML UDCUP PO ONE (02:30)
[2018-10-02] MEDS: ACETAMINOPHEN 650 MG/20.3 ML UDCUP TUBE PRN ×2 (02:34→19:29)
[2018-10-02] MEDS: AMPICILLIN/SULBACTAM 3 GM in NS 100 ML IV SCH ×4 (04:26→22:15)
[2018-10-02] MEDS: clonazePAM 0.5 MG TAB TUBE PRN ×2 (08:20→15:58)
[2018-10-02] MEDS: SERTRALINE HCL 50 MG TAB TUBE SCH (08:21)
[2018-10-02] MEDS: ENOXAPARIN 40 MG/0.4 ML SYR SC SCH (08:21)
[2018-10-02] MEDS: LANSOPRAZOLE SUSP 30MG/10ML UDSYR (Adult) TUBE SCH (08:21)
[2018-10-02] MEDS: ASPIRIN 81 MG CHEWABLE TAB TUBE SCH (08:21)
[2018-10-02] MEDS ORDERED: MAGNESIUM SULF 1 GM/DEXTROSE 100 ML IV ONE (10:09)
--- NOTE | 2018-10-02 13:27 | HOSPPROG ---
Hospitalist Progress Note Assessment/Plan: DIAGNOSES: * Acute norovirus infection with gastroenteritis including significant diarrhea -the still having multiple loose stools daily * Dehydration related to that * Acute respiratory infectious illness with frank virus * Acute chest x-ray abnormalities developed here -on my review of x-ray this appears more as a diffuse perihilar bilateral process consistent with either pulmonary edema or possibly viral pneumonia, and without new fever, high white count, or worsening respiratory status I doubt this is aspiration (has had significant IV fluid volumes here) * Anemia, acutely worsening here in the hospital, normocytic -there appears to be some iron deficiency based on lab results, so need to treat that and may need further assessment diagnostically over time * Recent stroke with dysphagia, has been using feeding tube but now progressing to advancing diet though poor appetite for oral intake so far * Hypokalemia and hypomagnesemia likely due to GI losses from above acute infections -improved today PLANS: * Recheck chest x-ray today is ordered, will review that when it is done * Will consider possible diuresis, possible stopping antibiotics after review of x-ray * Advance diet as per speech language recommendations * Continue potassium and magnesium replacements as needed * Begin iron replacement intravenously and change eventually to oral * Should probably have some endoscopic studies once he is more stable clinically * Physical occupational therapy has been ordered but apparently has not been happening, have requested staff to begin that * Will determine timing of return to assisted once the respiratory issues are settled in stable see above Seen by me on hospitalist rounds as well as multidisciplinary rounds today SUBJECTIVE: Remains weak, somewhat dyspneic today No pain anywhere Per nurses is doing okay with his dysphagia 1 diet but appetite poor, though is tolerating tube feeds well OBJECTIVE Vitals reviewed: Some hypertension, otherwise stable without fever Seam Closer, my review: Sinus Exam: alert talkative, disoriented to time place and some of his situation, relaxed skin warm dry color ok resps not labored lungs clear BSs heart regular abd soft nondistended nontender, bowel sounds present limbs warm, no edema iv site ok Laboratory data: Basic met panel stable Potassium and magnesium improved Ferritin is quite high indicating likely inflammatory process consistent with his acute illnesses, however the iron binding saturation is quite low Imaging: Chest x-ray pending Objective: Vital Signs Temp Pulse Resp BP Pulse Ox 36.4 C 84 20 152/104 H 100 10/02/18 11:51 10/02/18 11:51 10/02/18 11:51 10/02/18 11:51 10/02/18 11:51 Laboratory Results 10/02/18 06:10 10/02/18 06:10 10/01/18 10/02/18 10/03/18 06:59 06:59 06:59 Intake Total 460 910 Output Total 825 3 0 Balance -365 907 0 PT 13.1 SEC (12.0-15.0) 09/27/18 02:50 INR 0.97 (0.83-1.16) 09/27/18 02:50 - Time Spent With Patient Time Spent with Patient: greater than 35 minutes Time Spent with Patient: Greater than 35 minutes spent on this patients care, greater than 50% of time spent counseling, educating, and coordinating care regarding the above mentioned plan. ICD10 Worksheet Patient Problems: Problems Problem Status Onset Dehydration Acute Fever Acute Vomiting Acute
[2018-10-02] MEDS: SODIUM FERRIC GLUCONAT/SUCROSE 125 MG in NS 100 ML IV SCH (14:22)
[2018-10-02] MEDS ORDERED: clonazePAM 0.5 MG TAB TUBE ONE (20:07)
[2018-10-03] MEDS: AMPICILLIN/SULBACTAM 3 GM in NS 100 ML IV SCH ×2 (05:45→10:01)
[2018-10-03] MEDS ORDERED: MAGNESIUM SULF 1 GM/DEXTROSE 100 ML IV ONE (08:16)
[2018-10-03] MEDS: SODIUM FERRIC GLUCONAT/SUCROSE 125 MG in NS 100 ML IV SCH (08:49)
[2018-10-03] MEDS: SERTRALINE HCL 50 MG TAB TUBE SCH (08:53)
[2018-10-03] MEDS: clonazePAM 0.5 MG TAB TUBE PRN (08:53)
[2018-10-03] MEDS: ENOXAPARIN 40 MG/0.4 ML SYR SC SCH (08:54)
[2018-10-03] MEDS: LANSOPRAZOLE SUSP 30MG/10ML UDSYR (Adult) TUBE SCH (08:54)
[2018-10-03] MEDS: ASPIRIN 81 MG CHEWABLE TAB TUBE SCH (08:54)
[2018-10-03 12:07] VITALS: BP 138/92
--- NOTE | 2018-10-03 13:30 | PDIAF ---
- Diagnosis Diagnosis: Norovirus, pneumonia, iron deficiency, history of stroke Code Status: Do Not Resuscitate - Medication Management Additional Medication Instructions: Augmentin can be discontinued after October 06 doses. At this point should continue his Protonix until after he has Gastroenterology outpatient evaluations Discharge Medications: electronically signed and located in the Home Medication List. - Orders Services needed: Registered Nurse, Certified Circular Saw Edge Fuser, Master Diversional Therapist'S Assistant , Physical Therapy, Occupational Therapy, Speech Language Pathologist Isolation Type: Contact Isolation, Droplet Isolation Diet Recommendation: no restrictions on diet Diet Texture: Dysphagia 1 - Pureed, Liebenthal Thick Liquids, Meds Whole in Puree Tube feeding: Jevity at 45 mL per hour with 150 mL water every 4 hr, potential to decreas Weigh Patient: weekly Additional Instructions: The patient is identified as having new onset iron deficiency anemia. I have contacted Dr. Phipps from [facility]ology of [facility] and they will make arrangements for endoscopic evaluations to look for cause of iron deficiency. However if you do not hear from [facility] over the next couple weeks about scheduling endoscopies contact Dr. Baltazar Phipps [phone] The patient also is identified as having both frank virus in respiratory tract and norovirus in the GI tract here at this admission. He will need to be on respiratory isolation for both of those per your facility protocol, both infections identify September 27 - Follow Up Care Current Providers and Referrals: JASON QUARLES [Primary Care Provider] - As per Instructions
--- NOTE | 2018-10-03 13:45 | PDDCSUM ---
Discharge Summary Discharge Summary: DISCHARGE DIAGNOSES: * acute sepsis * acute neuro virus gastroenteritis infection * dehydration due to above * acute respiratory infection with frank virus * acute aspiration pneumonitis likely as a result of his GI infection * newly identified iron deficiency anemia * deconditioning * history of stroke with resultant dysphagia PROCEDURES: Video esophagram speech language swallow study: Aspiration with nectars via cup Tolerating tspns of thin and nectar without aspiration when compensatory strategies followed. HOSPITAL COURSE SUMMARY: This patient has had a stroke in lives at [facility] for care of his stroke and activities of living. He was transferred from [facility] to this hospital because of fevers and vomiting. He was having diarrhea as he arrived here and had a cough and some sense of dyspnea. He was identified as having a frank virus infection as well as a norovirus gastrointestinal infection. There was mild early sepsis that resolved quickly and easily with some hydration. The patient was treated conservatively 5 for his viral infections and has done very well with resolution of all the symptoms. He did appear to develop some possible aspiration pneumonitis here. This may have been related to the vomiting that he had as an outpatient or potentially to weakness in addition to his chronic dysphagia from his previous stroke. He has a feeding tube in place and uses that for much of his feedings. As he is recovered here in the hospital we have been able to start some oral feedings again and he is now taking it dysphagia 1 diet but needs to go spoon by spoon and with aspiration precautions. He was also identified as having some anemia here and has some iron deficiency. This is new as best I can tell and his hemoglobin has dropped 2 points between July and now. Is felt that the patient should have endoscopic evaluations but not during his acute respiratory and GI illness. I contacted Dr. Baltazar Phipps from Gastroenterology of the [facility] and he will arrange to have the patient get outpatient endoscopies in the near future. At this point the patient is stable for discharge back to [facility] He needs ongoing tube feeds but can also receive oral feeds under the guidance of speech language pathology/speech therapist there and we are sending copy of our video esophagram report In addition the patient needs ongoing antibiotics for another 3 days with Augmentin, as well as treatment with Protonix and iron supplements. PENDING TEST RESULTS: None MEDICATION CHANGES: Addition of iron sulfate tablets Addition of Augmentin 875 mg twice daily through and including Shelly 16th FOLLOW-UP PLAN: Return to [facility] today There he should have ongoing care under the log yard manager team, speech language pathology for dysphagia, physical occupational therapy Dr. Baltazar Phipps of Gastroenterology review of the [facility] is been cold salted to set up outpatient endoscopy studies for iron deficient the Greater than 35 minutes bedside and care coordination time today
--- NOTE | 2018-10-04 09:15 | ASDISCHSUM ---
Discharge Information Plan Status:SNF Medically Cleared to Leave: Discharge Date:10/03/2018 05:39 PM CM D/C Disposition: ADT D/C Disposition:Detention Facility Projected Discharge Date:10/03/2018 11:00 AM Transportation at D/C: Discharge Delay Reason: Follow-Up Date:10/03/2018 11:00 AM Discharge Slot: Final Diagnosis: Placement Information Referral Type:*Senior Care/SNF Referral ID:[id number] Provider Name:Earnest Canales/PeteyLango Address 1:[address] [facility] [facility] Address 2: Fax Number: [facility]:[place] Selection Factors: State:[place] Patient Contact Information Contact Name:MAGGIE Relationship: Address:[address] [place] [address] Work Phone: City:[place] Alternate Phone: State/Zip Code:[place] [address] Email: Financial Information Financial Class:Medicaid Primary Plan Desc:[place] Primary Plan Number:[id number] Secondary Plan Desc: Secondary Plan Number: Assessment Information [facility] CM Progress Note CM Note CM Note Notes: Chart reviewed for discharge planning purposes. 63 year old male who has significant hx of CVA and AAA, admitted via ED this am for vomiting. Patient resides at [facility] and will likely return there when medically stable for discharge, CM to follow for needs. referral via allscripts to [facility]. Plan: Likely dc to [facility] when medically cleared for discharge. Date Signed: 09/27/2018 03:27 PM Electronically Signed By:Sharifa Nichole RN [facility] CM Progress Note CM Note CM Note Notes: 09/30/2017 Case Management Note Discussed pt during rounds this morning. On site visit from Hung, construction representative from [facility]. Updated via [employer]. Anticipating d/c over the weekend. Case Management d/c poc: [facility] where pt resides Case Management to follow. Date Signed: 09/30/2018 12:20 PM Electronically Signed By:Peri Morrissey RN Intervention Information
== END 2018-10-03 17:39 | DRG 720 ==
LOC: EDUNIT# → F2W 07:37 → OBSVTOIN 09-28 15:44
PROVIDERS: ADMIT Student in an Organized Health Care Education/Training Program; ATTEND Student in an Organized Health Care Education/Training Program
DX: A41.89 Other specified sepsis (principal); J69.0 Pneumonitis due to inhalation of food and vomit; L89.222 Pressure ulcer of left hip, stage 2; B97.89 Other viral agents as the cause of diseases classified elsewhere; A08.39 Other viral enteritis; E86.0 Dehydration; J06.9 Acute upper respiratory infection, unspecified; B97.29 Other coronavirus as the cause of diseases classified elsewhere; D50.9 Iron deficiency anemia, unspecified; I69.391 Dysphagia following cerebral infarction; Z66 Do not resuscitate
CPT/HCPCS: 92526-GN; 92610-GN; 92611-GN; 96374; 97162-GP; 97166-GO; 97530-GP; G0378; G0515-GO; J0295; J1650; J1885; J2405; J2916; J3475; J3480

== ENCOUNTER 2018-11-16 12:35 | Day surgery (SDC) | payer MEDICAID ==
[2018-11-16] MEDS ORDERED: LR 1,000 ML IV ONE (13:17)
[2018-11-16 13:52] LABS: PLATELET COUNT 274 10^3/uL (150-400)
--- NOTE | 2018-11-16 14:50 | PDANEPAE ---
ANE History of Present Illness here for EGD ANE Past Medical History - Cardiovascular History Hx Hypertension: Yes Hx Arrhythmias: No Hx Chest Pain: No Hx Coronary Artery / Peripheral Vascular Disease: No Hx CHF / Valvular Disease: No Hx Palpitations: No - Pulmonary History Hx Oxygen in Use at Home: No Hx Sleep Apnea: No Sleep Apnea Screening Result - Last Documented: Positive - Neurologic History Hx Cerebrovascular Accident: Yes Hx Dementia: Yes - Endocrine History Hx Diabetes: No - Other Health History Other Health History: PAT FROM HISTORY AND SAMARIA HOYT NURSE. ANEMIA - Chronic Pain History Chronic Pain: Yes - Surgical History Prior Surgeries: AAA REPAIR ANE Review of Systems Review of Systems: - Exercise capacity METS (RN): 1 METS ANE Patient History - Allergies Allergies/Adverse Reactions: No Known Allergies Allergy (Verified 09/27/18 02:45) - Home Medications Home medications: home medication list seen and reviewed Home Medications: Aspirin EC [Aspirin EC 81 mg (*)] 81 mg PO DAILY 09/27/18 [Last Taken 11/15/18] Pantoprazole Sodium [Protonix 40mg (*)] 40 mg PO HS 09/27/18 [Last Taken ] Sertraline HCl [Zoloft 50mg (*)] 50 mg PO DAILY 09/27/18 [Last Taken 11/15/18] amLODIPine BESYLATE [Norvasc 10 mg (*)] 10 mg PO DAILY 09/27/18 [Last Taken ] clonazePAM [Clonazepam] 0.25 mg PO BID PRN 09/27/18 [Last Taken 11/15/18] Clonazepam 11/15/18 [Last Taken Unknown] Esomeprazole Magnesium [Nexium] 11/16/18 [Last Taken 11/15/18] - NPO status NPO Status: no food or drink >8 hours NPO Since - Liquids (Date): 11/16/18 NPO Since - Liquids (Time): 06:00 NPO Since - Solids (Date): 11/15/18 - Smoking Hx Smoking Status: Unknown if ever smoked ANE Labs/Vital Signs - Labs Result Diagrams: 11/16/18 13:35 - Vital Signs Vital Signs: reviewed preoperatively; see RN documention for details Blood Pressure: 158/96 Heart Rate: 81 Respiratory Rate: 16 O2 Sat (%): 96 Weight: 55.792 kg ANE Physical Exam - Airway Neck exam: FROM Mallampati Score: Class 1 - Pulmonary Pulmonary: no respiratory distress - Cardiovascular Cardiovascular: regular rate and rhythym - ASA Status ASA Status: III ANE Anesthesia Plan Anesthesia Plan: GA with mask
--- NOTE | 2018-11-16 15:14 | PDGENHP ---
History & Physical Chief Complaint: fe def anemia History of Present Illness: fe def anemia Pertinent Past, Social, Family History: [facility]. no tobacco no alcool Relevant Physical Exam: alert but not oriented. cta. s1s2. +bs soft nt Cardiorespiratory Assessment: class 3
[2018-11-16] MEDS ORDERED: LR 500 ML IV PRN (15:31)
[2018-11-16] MEDS ORDERED: ONDANSETRON 4 MG/2 ML VIAL IVP PRN (15:31)
[2018-11-16] MEDS ORDERED: NALOXONE HCL 0.4 MG/ML INJ IVP PRN (15:31)
[2018-11-16] MEDS ORDERED: ALBUTEROL 3 ML DEYVIAL IH PRN (15:31)
--- NOTE | 2018-11-16 16:00 | GIREPORT ---
[facility] Surgical Services - Endoscopy Department Patient Name: Can Morrissey Procedure Date: 11/16/2018 3:23 PM Patient Type: Outpatient Attending MD/ ER Physician: Eugenio Roberts MD Procedure: Upper GI endoscopy Indications: Iron deficiency anemia Providers: Eugenio Roberts MD Medicines: Propofol per Anesthesia Complications: No immediate complications. Estimated blood loss: Minimal. Description of Procedure: After obtaining informed consent, the endoscope was passed under direct vision. Throughout the procedure, the patient's blood pressure, pulse, and oxygen saturations were monitored continuously. The Endoscope was intro duced through the mouth, and advanced to the third part of duodenum. The uppe r GI endoscopy was accomplished without difficulty. The patient tolerated th e procedure well. Findings: There were esophageal mucosal changes consistent with long-segment Phelps ett's esophagus present in the middle third of the esophagus and in the lower third of the esophagus. The maximum longitudinal extent of these mucosa l changes was 10 cm in length. Mucosa was biopsied with a cold forceps fo r histology. A total of 2 specimen bottles were sent to pathology. Estima michael blood loss was minimal. A medium-sized hiatal hernia was present. There was evidence of a gastrostomy present in the gastric body. The examined duodenum was normal. Biopsies for histology were taken wit h a cold forceps for evaluation of celiac disease. Estimated blood loss was minimal. The exam was otherwise without abnormality. Estimated Blood Loss: Estimated blood loss was minimal. Post Op Diagnosis: - Esophageal mucosal changes consistent with long-segment Treadwell's esophagus. Biopsied. - Medium-sized hiatal hernia. - Gastrostomy present. - Normal examined duodenum. Biopsied. - The examination was otherwise normal. Recommendation: - Await pathology results. - My office will call with the pathology result with 5-7 days. If you h ave not heard from my office by 14, do not assume the pathology is anibal l, please call [phone] to get the pathology results. - Repeat upper endoscopy in 1 year for surveillance based on pathology results. - Follow an antireflux regimen. - Use Protonix (pantoprazole) 40 mg PO daily indefinitely. Can use othe r PPI as per formulary ie omeprazole 40mg, lansoprazole 30mg. Take 30-60 rachel eric before breakfast. - Use Zantac (ranitidine) 300 mg PO at bedtime for 3 months. - Perform a colonoscopy today. - Return to primary care physician as previously scheduled. - Thank you for allowing me to help in your patient's care. Do not hesi rojas to call with any questions. Attending Participation: I personally performed the entire procedure. Alejandra Haile M.D Eugenio Roberts MD 11/16/2018 4:00:05 PM This report has been signed electronicallyMattmaría Roberts MD Number of Addenda: 0 Note Initiated On: 11/16/2018 3:23 PM [email or web address]
--- NOTE | 2018-11-16 16:03 | GIREPORT ---
[facility] Surgical Services - Endoscopy Department Patient Name: Can Morrissey Procedure Date: 11/16/2018 3:20 PM Patient Type: Outpatient Attending MD/ ER Physician: Eugenio Roberts MD Procedure: Colonoscopy Indications: Iron deficiency anemia Providers: Eugenio Roberts MD Referring MD: Earnest Canales Medicines: Propofol per Anesthesia Complications: No immediate complications. Estimated blood loss: None. Description of Procedure: After obtaining informed consent, the scope was passed under direct vis ion. Throughout the procedure, the patient's blood pressure, pulse, and oxyg en saturations were monitored continuously. The Colonoscope with irrigatio n channel was introduced through the anus with the intention of advancing to the ileum. The scope was advanced to the sigmoid colon before the proce dure was aborted. Medications were given. The colonoscopy was performed with out difficulty. The patient tolerated the procedure well. The quality of th e bowel preparation was unsatisfactory. Findings: The digital rectal exam was normal. Copious quantities of semi-solid solid stool was found in the rectum an d in the sigmoid colon, precluding visualization. Estimated Blood Loss: Estimated blood loss: none. Post Op Diagnosis: - Preparation of the colon was unsatisfactory. - Stool in the rectum and in the sigmoid colon. - No specimens collected. Recommendation: - Repeat colonoscopy at appointment to be scheduled because the bowel preparation was poor. - See EGD for other recommendations - Discharge patient to a halfway. - Patient has a contact number available for emergencies. The signs and symptoms of potential delayed complications were discussed with the pat iemonique. Return to normal activities tomorrow. Written discharge instructions we re provided to the patient. - Continue present medications. - Return to primary care physician as previously scheduled. - Thank you for allowing me to help in your patient's care. Do not hesi rojas to call with any questions. Attending Participation: I personally performed the entire procedure. Alejandra Haile M.D Eugenio Roberts MD 11/16/2018 4:02:53 PM This report has been signed electronicallyMattmaría Roberts MD Number of Addenda: 0 Note Initiated On: 11/16/2018 3:20 PM Total Procedure Duration Time 0 hours 1 minute 8 seconds [email or web address]
[2018-11-16 18:07] VITALS: BP 145/91
== END 2018-11-16 18:04 ==
LOC: FSGY 12:35
PROVIDERS: ATTEND Internal Medicine Gastroenterology
DX: D50.9 Iron deficiency anemia, unspecified (principal); K22.70 Barrett's esophagus without dysplasia; K44.9 Diaphragmatic hernia without obstruction or gangrene; Z86.73 Personal history of transient ischemic attack (TIA), and cerebral infarction without residual deficits

== ENCOUNTER 2018-11-20 20:51 | Emergency (ER) | payer MEDICAID | END 2018-11-20 23:15 | disposition home or self-care (01) ==

== ENCOUNTER 2018-12-14 19:16 | Emergency (ER) | payer MEDICAID ==
--- NOTE | 2018-12-14 20:48 | EDPHY ---
General - History Smoking Status: Unknown if ever smoked Time Seen by Provider: 12/14/18 19:20 Narrative: CLINICAL IMPRESSION: Left 5th proximal phalanx fracture ASSESSMENT/PLAN: 63-year-old delayed male, resident of [facility] presents to the emergency department after an unwitnessed injury to the left 5th finger. Patient is at his baseline but is a very poor historian secondary to cerebral infarct, TBI and previous CVAs. He has a displaced, closed, left proximal phalanx fracture of the 5th finger. Digital block placed and finger was reduced to improved anatomical position, yarelis taped and placed in an ulnar gutter splint. Patient was discharged in stable condition back to [facility] with strict discharge instructions for follow up at Orthopedics. Referral given. Warning signs return to ED outlined and discharge. DIFFERENTIAL DX: Differential includes but not limited to acute fracture, strain/sprain, joint dislocation, soft tissue contusion ED PROCEDURES: Procedure: Splint placement. A left ulnar gutter splint was applied to left hand by civil technician, supervised by myself. After application of the splint I returned and re-examined the patient. The splint was adequately immobilizing the joint and distal to the splint the patient's circulation and sensation was intact. ED COURSE: X-rays reviewed by myself. Proximal left 5th proximal phalanx fracture. Digital block placed by myself. Finger realigned and yarelis-taped and ulnar gutter splint will be applied. Neurovascular exam intact. Cap refill 2 sec. No open wound. CHIEF COMPLAINT: Left 5th finger pain HPI: 63-year-old male with multiple medical comorbidities, very poor historian although at baseline, presents by ambulance from [facility] with an obvious injury to the left 5th finger. According to staff, EMS, and patient there was no witnessed injury or fall however patient is a very poor historian. According to staff he is at his baseline. He has obvious displacement of the left 5th finger with no open wounds. No reports of pain anywhere else. PAST MEDICAL HISTORY: See nurse triage notes. Cerebral infarct, TBI, CVA, cortical blindness Pertinent Past Surgical History: See nurse triage notes Social History: Lives at [facility], DNR REVIEW OF SYSTEMS: All other systems negative Constitutional: No fever, no chills Musculoskeletal: No deformity, + joint pain Skin: No rashes, color change or open wounds. Neurological: No sensory loss or weakness. PHYSICAL EXAM: General Appearance: Alert, oriented, appropriate for age, cooperative, NAD, well hydrated, non-toxic appearing, VSS, no hypoxia. Neurological: Alert and oriented x 3, normal sensation and strength of extremities Skin: Warm, dry, no rashes, no nodules on palpation. Musculoskeletal: Lateral deviation of the left 5th finger at the MCP joint. No open wounds. Distal neurovascular exam intact. No evidence of flexor or extensor tendon injury. MEDICAL DECISION MAKING: Patient was seen independently. Secondary supervising physician at time of evaluation was Dr. Hernandez . Diagnosis: Left, 5th, proximal phalanx fracture. New, requires workup Summary: See assessment and plan for summary of ED visit Independent visualization of images, tracing, or specimens yes. Patient Progress: Stable for discharge. (Douglas Vargas) Medical Decision Making: I did not see this patient while he was in the emergency department. However his care was discussed with the PA while the patient was in the department. I agree with treatment plan and management (Adalid Hernandez) - Diagnostics Imaging Results: Imaging Impressions Hand X-Ray 12/14/18 19:29 Impression: 1. Angulated and mildly displaced fracture base of the fifth proximal phalanx. - Objective Vital Signs: Initial Vital Signs Temperature (C) 36.7 C 12/14/18 19:23 Heart Rate 89 12/14/18 19:23 Respiratory Rate 20 12/14/18 19:23 Blood Pressure 174/111 H 12/14/18 19:23 O2 Sat (%) 93 12/14/18 19:23 O2 Delivery Mode Room Air Allergies/Adverse Reactions: No Known Allergies Allergy (Verified 12/14/18 19:22) Home Medications: Medication Instructions Recorded Sertraline HCl [Zoloft 50mg (*)] 50 mg TUBE DAILY 09/27/18 amLODIPine BESYLATE [Norvasc 10 mg 10 mg TUBE DAILY 09/27/18 (*)] Esomeprazole Magnesium [Nexium] 40 mg TUBE HS 11/16/18 Acetaminophen [Tylenol 650/20.3ML 650 mg TUBE Q4HRS PRN 11/20/18 Oral Liq (*)] Aspirin [Aspirin 81mg (*)] 81 mg TUBE DAILY 11/20/18 Ferrous Sulfate 220 mg TUBE DAILY 11/20/18 clonazePAM [Clonazepam] 0.25 mg TUBE BID PRN 11/20/18 Departure - Departure Disposition: Home, Routine, Self-Care Clinical Impression: Phalanx, proximal fracture of finger Qualifiers: Encounter type: initial encounter Finger: little finger Fracture type: closed Fracture alignment: displaced Laterality: left Qualified Code(s): S62.617A - Displaced fracture of proximal phalanx of left little finger, initial encounter for closed fracture Condition: Good Instructions: Finger Fracture (ED) Additional Instructions: DISCHARGE INSTRUCTIONS FROM YOUR DOCTOR Thank you for visiting our emergency department today. You were treated by a physician contact center assistant today and your case was reviewed with our ED Attending physician. Please keep in mind that discharge from the emergency department does not mean that there is nothing wrong - it simply means that we have not identified an emergency condition that requires further evaluation or treatment in the hospital. You should always plan to follow up with primary care for re- evaluation of your condition in the next 2-3 days. If you have been referred to a specialist, please call as soon as possible (today or tomorrow) to schedule your follow up appointment at the appropriate time. YOU HAVE A FRACTURE OF THE LEFT 5TH FINGER. THIS WILL NEED AN ORTHOPEDIC EVALUATION. PLEASE CALL THE ORTHOPEDIC PROVIDER ON YOUR DISCHARGE PAPERS TOMORROW TO MAKE A FOLLOW-UP APPOINTMENT. KEEP THE SPLINT WE PLACED ON TONIGHT IN PLACE UNTIL YOU SEE ORTHOPEDICS. REST AND ELEVATE THE AFFECTED EXTREMITY MUCH POSSIBLE. ICE THE AFFECTED AREAS 20 MIN ON, 20 MIN OFF FOR THE NEXT SEVERAL DAYS. RETURN TO ER FOR INCREASED PAIN, LOSS OF SENSATION TO FINGER, COLOR CHANGES TO THE FINGER, FEVER OR ANY OTHER CONCERNS. People present with illnesses and injuries in different ways, and it is always possible that we have missed something. You may always return for re-evaluation if symptoms worsen or if they are not improving or if you develop new/different symptoms. Again, thank you for choosing our emergency department. We hope that you feel better. Referrals: JASON QUARLES [Primary Care Provider] - As per Instructions Yakov Barrios MD [Medical Doctor] - 1-2 days without fail
[2018-12-15 04:23] VITALS: BP 125/65
== END 2018-12-14 22:04 | disposition home or self-care (01) ==
LOC: EDUNIT#
PROC: 0PSVXZZ Reposition Left Finger Phalanx, External Approach (ICD-10-PCS; principal; 2018-12-14)
DX: S62.617A Displaced fracture of proximal phalanx of left little finger, initial encounter for closed fracture (principal); W19.XXXA Unspecified fall, initial encounter; Y92.129 Unspecified place in nursing home as the place of occurrence of the external cause; Z86.73 Personal history of transient ischemic attack (TIA), and cerebral infarction without residual deficits

== ENCOUNTER 2019-01-07 00:09 | Inpatient (IN) | payer MEDICAID ==
[2019-01-07] MEDS ORDERED: NS 1,000 ML IV ONE ×2 (00:15→03:39)
[2019-01-07] MEDS ORDERED: ONDANSETRON 4 MG/2 ML VIAL IVP ONE (00:15)
--- NOTE | 2019-01-07 00:26 | EDPHY ---
H & P Time Seen by Provider: 01/07/19 00:11 HPI/ROS: HPI CHIEF COMPLAINT: Nausea, vomiting, diarrhea, generalized weakness HISTORY OF PRESENT ILLNESS: Patient is a 63-year-old male, arrives to the emergency room by EMS from [facility], he arrives for nausea vomiting diarrhea. It is noted here he has a temperature of 38.0. His complaint is nausea, vomiting, diarrhea also additionally has some discomfort around his PEG tube site. On exam he is slightly febrile, noted be tachycardic, and appears dehydrated. Past Medical History: History of CVA, dysphagia, peg tube, blind Past Surgical History: Peg tube Social History: Resides at [facility] Family History: Noncontributory ROS REVIEW OF SYSTEMS: 10 Systems were reviewed and negative with the exception of the elements mentioned in the history of present illness. Exam Constitutional frail, nontoxic triage nursing summary reviewed, vital signs reviewed, awake/alert. Eyes Blind HENT normal inspection, atraumatic, moist mucus membranes, no epistaxis, neck supple/ no meningismus, no raccoon eyes. Respiratory clear to auscultation bilaterally, normal breath sounds, no respiratory distress, no wheezing. Cardiovascular rate normal, regular rhythm, no murmur, no edema, distal pulses normal. Gastrointestinal peg tube inserts into the left-sided upper abdomen, some mild redness around PEG tube site, no pus, no significant infection seen. Mild tender palpation around this, Genitourinary no CVA tenderness. Musculoskeletal no midline vertebral tenderness, full range of motion, no calf swelling, no tenderness of extremities, no meningismus, good pulses, neurovascularly intact. Skin pink, warm, & dry, no rash, skin atraumatic. Neurologic appears to be at neurological baseline blind. Cachectic extremities, frail appearing, moves everything, slow to respond. Psychiatric normal mood/affect. Heme/Lymph/Immune no lymphadenopathy. Differential Diagnosis: Includes but is not limited to in a particular order dehydration, electrolyte disturbance, acute febrile illness, sepsis, bacteremia , pneumonia, UTI, aspiration pneumonia Medical Decision Making: Plan for this patient IV establishment with blood draw , blood cultures, lactic acid, rainbow labs, urinalysis, chest x-ray, KUB Re-evaluation: 0302: Patient re-evaluated resting comfortably. Vital signs are stable. Chest x-ray reviewed negative for acute cardiopulmonary disease image interpreted by myself. KUB reviewed negative for abnormal bowel gas pattern. Images reviewed by myself. 0442: Patient re-evaluated this time still complains of nausea. He has not had any vomiting or diarrhea here. He is resting with stable vital signs however plan for observation today in the hospital Plan for admission the hospital I consult Dr. Quick agrees to admit. Source: Patient, EMS - Medical/Surgical History Hx Asthma: No Hx Chronic Respiratory Disease: No Hx Diabetes: No Hx Cardiac Disease: Yes Hx Renal Disease: No Hx Cirrhosis: No Hx Alcoholism: No Hx HIV/AIDS: No Hx Splenectomy or Spleen Trauma: No Other PMH: AAA repair, Cerebral infarct, dysphagia, cortical blindness, aphasia , HTN, CKD, anxiety, TBI - Social History Smoking Status: Unknown if ever smoked Constitutional: Initial Vital Signs Temperature (C) 38.1 C 01/07/19 00:10 Heart Rate 102 H 01/07/19 00:10 Respiratory Rate 18 01/07/19 00:10 Blood Pressure 161/102 H 01/07/19 00:10 O2 Sat (%) 93 01/07/19 00:10 O2 Delivery Mode Room Air Allergies/Adverse Reactions: No Known Allergies Allergy (Verified 12/14/18 19:22) Home Medications: Medication Instructions Recorded Sertraline HCl [Zoloft 50mg (*)] 75 mg PO DAILY 09/27/18 amLODIPine BESYLATE [Norvasc 10 mg 10 mg PO DAILY 09/27/18 (*)] Acetaminophen [Tylenol 650/20.3ML 650 mg PO Q4HRS PRN 11/20/18 Oral Liq (*)] Aspirin [Aspirin 81mg (*)] 81 mg PO DAILY 11/20/18 clonazePAM [Clonazepam] 0.25 mg PO BID 11/20/18 Pantoprazole Sodium [Protonix 40mg 40 mg PO DAILY 01/07/19 (*)] Medical Decision Making - Diagnostics Imaging Results: Imaging Impressions Chest X-Ray 01/07/19 00:21 Impression: No acute findings in the chest. - Data Points Laboratory Results: Laboratory Results 01/07/19 00:34 01/07/19 00:34 Medications Given: Sodium Chloride (Ns) 1,000 mls @ 75 mls/hr IV CONT FRANNIE Stop: 07/06/19 05:29 Last Admin: 01/07/19 18:47 Dose: 1,000 mls Discontinued Medications Acetaminophen (Tylenol) 650 mg TUBE Q6HRS PRN PRN Reason: Pain, Mild/Fever, Can Take PO Stop: 07/06/19 05:36 Last Admin: 01/07/19 12:53 Dose: 650 mg Sodium Chloride (Ns) 1,000 mls @ 0 mls/hr IV EDNOW ONE; Wide Open PRN Reason: Protocol Stop: 01/07/19 00:16 Last Admin: 01/07/19 00:42 Dose: 1,000 mls Sodium Chloride (Ns) 1,000 mls @ 0 mls/hr IV ONCE ONE PRN Reason: Wide Open Stop: 01/07/19 03:40 Last Admin: 01/07/19 03:54 Dose: 1,000 mls Ondansetron HCl (Zofran) 4 mg IVP EDNOW ONE Stop: 01/07/19 00:16 Last Admin: 01/07/19 00:43 Dose: 4 mg Departure - Departure Disposition: [facility] Clinical Impression: Dehydration Fever Qualifiers: Fever type: unspecified Qualified Code(s): R50.9 - Fever, unspecified Vomiting Qualifiers: Vomiting type: unspecified Vomiting Intractability: non-intractable Nausea presence: with nausea Qualified Code(s): R11.2 - Nausea with vomiting, unspecified Condition: Fair
[2019-01-07 01:00] LABS: INR 1.16 (0.83-1.16); PROTIME(PATIENT) 14.3 SEC (12.0-15.0)
[2019-01-07 01:04] LABS: PLATELET COUNT 273 10^3/uL (150-400)
[2019-01-07] MEDS ORDERED: ACETAMINOPHEN 650 MG SUPP PR PRN (05:29)
[2019-01-07] MEDS ORDERED: ONDANSETRON 4 MG/2 ML VIAL IVP PRN (05:29)
[2019-01-07] MEDS ORDERED: ACETAMINOPHEN 325 MG TAB TUBE PRN (05:37)
[2019-01-07] MEDS: NS 1,000 ML IV SCH ×2 (06:34→18:47)
--- NOTE | 2019-01-07 09:16 | PDGENHP ---
History and Physical - Chief Complaint Nausea vomiting diarrhea - History of Present Illness Source-patient is unable to provide significant amount of history. His responses are very minimal. His baseline mentation is unclear at this point has a history of CVA and blindness. EMR was reviewed and case discussed with ED provider. HPI - this is a pleasant 63-year-old gentleman with past medical history significant for history CVA will plan AAA with repair, chronic dysphagia with history of aspiration pneumonia now with PEG tube in placement, TBI, HTN, CKD, anxiety and celiac disease who presents emergency department from [facility] with concerns of nausea, vomiting, diarrhea, fever and abdominal pain. Patient' s heart rate is living facility was noted to be 106. Respiratory 20 blood pressure 169/106 temperature 101.1 with 80% on room air. Patient apparently had multiple episodes of nonbloody non melenic emesis, diarrhea. Patient with recent admission in September of this year for Noro virus with similar symptoms. Patient is otherwise unable to provide any additional information today other than he really does not feel well. History Information - Allergies/Home Medication List Allergies/Adverse Reactions: No Known Allergies Allergy (Verified 12/14/18 19:22) Home Medications: Sertraline HCl [Zoloft 50mg (*)] 09/27/18 [Last Taken 11/15/18] amLODIPine BESYLATE [Norvasc 10 mg (*)] 09/27/18 [Last Taken 11/15/18] Acetaminophen [Tylenol 650/20.3ML Oral Liq (*)] 11/20/18 [Last Taken Unknown] Aspirin [Aspirin 81mg (*)] 11/20/18 [Last Taken Unknown] clonazePAM [Clonazepam] 11/20/18 [Last Taken Unknown] Pantoprazole Sodium 01/07/19 [Last Taken Unknown] I have personally reviewed and updated: family history, medical history, social history, surgical history - Past Medical History CVA Additional medical history: Patient with history of CVA and TBI, dysphagia in with PEG placement and replacement. Cortical blindness. HTN, CKD, anxiety, AAA status post repair and celiac disease - Surgical History Additional surgical history: AAA repair, peg tube placement - Family History Additional family history: Patient unable to provide - Social History Smoking Status: Unknown if ever smoked Alcohol Use: None Drug Use: None Additional social history: Patient resides at [facility]. Most form completed notes that patient is a DNR DNI. Review of Systems Review of Systems: Physical Exam Physical Exam: Temp Pulse Resp BP Pulse Ox 36.9 C 88 16 135/58 H 90 L 01/07/19 08:00 01/07/19 08:00 01/07/19 08:00 01/07/19 08:00 01/07/19 08:00 Lab Data & Imaging Review 01/07/19 00:34 01/07/19 00:34 WBC 7.44 10^3/uL (3.80-9.50) 01/07/19 00:34 RBC 4.53 10^6/uL (4.40-6.38) 01/07/19 00:34 Hgb 13.4 g/dL (13.7-17.5) L 01/07/19 00:34 Hct 38.9 % (40.0-51.0) L 01/07/19 00:34 MCV 85.9 fL (81.5-99.8) 01/07/19 00:34 MCH 29.6 pg (27.9-34.1) 01/07/19 00:34 MCHC 34.4 g/dL (32.4-36.7) 01/07/19 00:34 RDW 13.7 % (11.5-15.2) 01/07/19 00:34 Plt Count 273 10^3/uL (150-400) 01/07/19 00:34 MPV 10.1 fL (8.7-11.7) 01/07/19 00:34 Neut % (Auto) 85.4 % (39.3-74.2) H 01/07/19 00:34 Lymph % (Auto) 7.3 % (15.0-45.0) L 01/07/19 00:34 [place] % (Auto) 5.6 % (4.5-13.0) 01/07/19 00:34 Eos % (Auto) 0.7 % (0.6-7.6) 01/07/19 00:34 Baso % (Auto) 0.7 % (0.3-1.7) 01/07/19 00:34 Nucleat RBC Rel Count 0.0 % (0.0-0.2) 01/07/19 00:34 Absolute Neuts (auto) 6.35 10^3/uL (1.70-6.50) 01/07/19 00:34 Absolute Lymphs (auto) 0.54 10^3/uL (1.00-3.00) L 01/07/19 00:34 Absolute Monos (auto) 0.42 10^3/uL (0.30-0.80) 01/07/19 00:34 Absolute Eos (auto) 0.05 10^3/uL (0.03-0.40) 01/07/19 00:34 Absolute Basos (auto) 0.05 10^3/uL (0.02-0.10) 01/07/19 00:34 Absolute Nucleated RBC 0.00 10^3/uL (0-0.01) 01/07/19 00:34 Immature Gran % 0.3 % (0.0-1.1) 01/07/19 00:34 Immature Gran # 0.02 10^3/uL (0.00-0.10) 01/07/19 00:34 RBC/WBC/PLT Morphology TNP 01/07/19 00:34 Platelet Estimate TNP 01/07/19 00:34 PT 14.3 SEC (12.0-15.0) 01/07/19 00:34 INR 1.16 (0.83-1.16) 01/07/19 00:34 APTT 39.6 SEC (23.0-38.0) H 01/07/19 00:34 VBG Lactic Acid 1.3 mmol/L (0.7-2.1) 01/07/19 00:34 Sodium 137 mEq/L (135-145) 01/07/19 00:34 Potassium 3.9 mEq/L (3.5-5.2) 01/07/19 00:34 Chloride 99 mEq/L (97-110) 01/07/19 00:34 Carbon Dioxide 26 mEq/l (22-31) 01/07/19 00:34 Anion Gap 12 mEq/L (6-14) 01/07/19 00:34 BUN 34 mg/dL (7-23) H 01/07/19 00:34 Creatinine 1.0 mg/dL (0.7-1.3) 01/07/19 00:34 Estimated GFR > 60 01/07/19 00:34 Glucose 117 mg/dL (70-100) H 01/07/19 00:34 Calcium 9.6 mg/dL (8.5-10.4) 01/07/19 00:34 Total Bilirubin 0.8 mg/dL (0.1-1.4) 01/07/19 00:34 Conjugated Bilirubin 0.3 mg/dL (0.0-0.5) 01/07/19 00:34 Unconjugated Bilirubin 0.5 mg/dL (0.0-1.1) 01/07/19 00:34 AST 42 IU/L (17-59) 01/07/19 00:34 ALT 55 IU/L (21-72) 01/07/19 00:34 Alkaline Phosphatase 122 IU/L (38-126) 01/07/19 00:34 Total Protein 7.7 g/dL (6.3-8.2) 01/07/19 00:34 Albumin 4.2 g/dL (3.5-5.0) 01/07/19 00:34 Lipase 43 IU/L (23-300) 01/07/19 00:34 Imaging Review: Chest x-ray-no acute findings. Her to imaging for 10/10/2018 report pending. Resolution bilateral opacities. KUB-no evidence of perforation. Nonspecific bowel gas patterns. Peg tube in place. Fecaliths. Chest X-Ray results: no infiltrate Assessment & Plan Assessment: This is a pleasant 63-year-old gentleman with past medical history significant for history CVA will plan AAA with repair, chronic dysphagia with history of aspiration pneumonia now with PEG tube in placement, TBI, HTN, CKD, anxiety and celiac disease who presents emergency department from [facility] with concerns of nausea, vomiting, diarrhea, fever and abdominal pain. #Nausea vomiting diarrhea -suspicion is for gastroenteritis. Patient does have a recent his hospitalization in September for similar symptoms with norovirus. He does complain of some abdominal pain near his G-tube site. Patient without any guarding. At abdomen does become firm during a hicccup exacerbation. Continue with IV fluid hydration. Patient responsive to antiemetics which will continue p.r.n.. Is not had at diarrhea episode since arrival. #Dehydration (Acute) - IV fluid support #Fever (Acute) - suspicious for GI source. Patient also at risk for aspiration pneumonia. Hold off on antibiotics at this time. #Abdominal pain - patient is symptomatic with movement of his G-tube. There is no evidence of surrounding erythema or exudates. Abdominal x-ray without any evidence of free air in good positioning of the G-tube. Chronic medical conditions #Benign essential hypertension - blood pressure is a mildly elevated. Patient does become increasingly uncomfortable with palpation on his abdomen near the G- tube only otherwise is on non surgical. Resume amlodipine. #HLD - listed in past medical history not currently treated. #CKD - baseline creatinine unknown. Monitor following IV fluid. #Anxiety - continue clonazepam p.r.n. When med rec available. #Celiac disease - gluten free tube feeding. Dietary consult. #History AAA with repair patient's abdominal discomfort is localized to the PEG site. #History CVA - baseline mobility unknown. Suspected quite limited. #Dysphagia status post PEG tube with replacement #Cortical blindness FEN - IV fluids for support. Electrolyte monitoring replacement if needed. Tube feeds. PPX-SCDs.Consider anticoagulation in the morning if patient should stay additional day. Cor status DNR DNI per most form. Disposition-patient admitted observation status on med surge floor for continued support of likely gastroenteritis with fever and dehydration.
[2019-01-07] MEDS ORDERED: ACETAMINOPHEN 325 MG TAB PO PRN (18:00)
[2019-01-08] MEDS: NS 1,000 ML IV SCH (07:27)
[2019-01-08] MEDS: ASPIRIN 81 MG CHEWABLE TAB PO SCH (09:40)
[2019-01-08] MEDS: SERTRALINE HCL 50 MG TAB PO SCH (09:40)
[2019-01-08] MEDS: LANSOPRAZOLE SUSP 30MG/10ML UDSYR (Adult) PO SCH ×2 (09:47→11:42)
--- NOTE | 2019-01-08 11:20 | HOSPPROG ---
Hospitalist Progress Note Assessment/Plan: DIAGNOSES: * Acute gastroenteritis with Astrovirus * Dehydration * Acute metabolic encephalopathy due to above * History of traumatic brain injury and stroke, resultant chronic dysphagia * Chronic kidney disease * Chronic cortical blindness PLANS: * Continue IV hydration * Dysphagia diet is recommended by speech therapy * Fall risk precautions * DVT prophylaxis * Avoid sedating medicines * Try and promote sleep at night and awake during the day, other standard conservative measures for his encephalopathy SUBJECTIVE: Patient to confused to be able to the supply any answers at all about symptoms OBJECTIVE Vitals reviewed: All stable without fever overnight Exam: alert quite confused and disoriented, delusional and nonsensical speech, not anxious, no tremor skin warm dry color ok resps not labored lungs clear BSs heart regular abd soft nondistended nontender, bowel sounds present limbs warm, no edema iv site ok Microbiology: Stool studies positive for Astrovirus Blood cultures pending are negative to date Objective: Vital Signs Temp Pulse Resp BP Pulse Ox 37.0 C 84 19 116/66 92 01/08/19 07:52 01/08/19 07:52 01/08/19 07:52 01/08/19 07:52 01/08/19 07:52 Microbiology 01/08/19 08:12 Gastrointestinal Tract Panel (PCR) - Final Stool Astrovirus 01/07/19 01/08/19 01/09/19 06:59 06:59 06:59 Intake Total 1999 2638 Output Total 550 500 Balance 1999 2088 -500 PT 14.3 SEC (12.0-15.0) 01/07/19 00:34 INR 1.16 (0.83-1.16) 01/07/19 00:34 ICD10 Worksheet Patient Problems: Problems Problem Status Onset Dehydration Acute Fever Acute Vomiting Acute
--- NOTE | 2019-01-08 14:55 | ASMTCMCOM ---
CM Note CM Note Notes: Pt is a 63 y/o man, who normally resides at [facility], brought to the ED due to nausea, diarrhea and vomiting. When pt is medically clear he will return to [facility]. D/C Plan: [facility] Date Signed: 01/08/2019 02:54 PM Electronically Signed By:Ilene Rossi
--- NOTE | 2019-01-09 08:27 | PDMN ---
Medical Necessity Medical necessity: Pt meets IP criteria as of 01/08/2019 per and LEE ANN M-170 ( Gastroenteritis)' los > 2 mn for ongoing tx and management of astrovirus with ongoing diarrhea, dehydration and confusion despite observation care.
[2019-01-09] MEDS: SERTRALINE HCL 50 MG TAB PO SCH (08:33)
[2019-01-09] MEDS: LANSOPRAZOLE SUSP 30MG/10ML UDSYR (Adult) PO SCH (08:33)
[2019-01-09] MEDS: ASPIRIN 81 MG CHEWABLE TAB PO SCH (08:33)
[2019-01-09] MEDS: NS 1,000 ML IV SCH ×2 (08:37→20:24)
[2019-01-10] MEDS: NS 1,000 ML IV SCH (09:35)
--- NOTE | 2019-01-10 12:33 | PDIAF ---
- Diagnosis Diagnosis: Acute asked her virus gastroenteritis, encephalopathy Code Status: Do Not Resuscitate - Medication Management Discharge Medications: electronically signed and located in the Home Medication List. - Orders Services needed: Registered Nurse, Certified Core Maker Helper, Master Early Childhood Education Coordinator Isolation Type: Contact Isolation, Droplet Isolation Diet Recommendation: no restrictions on diet Diet Texture: Dysphagia 1 - Pureed, [place] Thick Liquids, Meds Crushed in Puree - Follow Up Care Current Providers and Referrals: NONE *PRIMARY CARE P,. [Primary Care Provider] - As per Instructions
[2019-01-10] MEDS: SERTRALINE HCL 50 MG TAB PO SCH (12:34)
[2019-01-10] MEDS: ASPIRIN 81 MG CHEWABLE TAB PO SCH (12:35)
[2019-01-10] MEDS: LANSOPRAZOLE SUSP 30MG/10ML UDSYR (Adult) PO SCH (12:35)
--- NOTE | 2019-01-10 12:37 | PDDCSUM ---
Discharge Summary Discharge Summary: DISCHARGE DIAGNOSES: * Acute gastroenteritis with Astrovirus identified * Dehydration * Acute encephalopathy * Chronic encephalopathy and traumatic brain injury * Chronic kidney disease * Chronic cortical blindness HOSPITAL COURSE SUMMARY: This patient who has history of traumatic brain injury and cortical blindness with chronic encephalopathy comes from the skilled nursing where he resides due to dehydration with severe diarrhea and vomiting. He was found to have Astrovirus infection. He was treated with IV fluid hydration and anti diarrheal in gradually over time his vomiting and diarrhea abated. He is now eating reasonably well. His stool is still loose but he has had only 1 in the last 20 hr. There has been no bleeding, no fever, no other signs of complications. He has been more encephalopathic than usual during this illness but that seems to be resolving as his illness resolved and he is rehydrated. He is stable this from time for transfer back to his chronic nursing home facility. There is a private room for him there. PENDING TEST RESULTS: None MEDICATION CHANGES: Addition of [place] as needed FOLLOW-UP PLAN: He will be under the care of the paper products supervisor staff and other staff at nursing home [facility] where he lives Greater than 35 minutes bedside and care coordination time today
--- NOTE | 2019-01-10 12:39 | PDIAF ---
- Diagnosis Diagnosis: Acute Astrovirus gastroenteritis, encephalopathy Code Status: Do Not Resuscitate - Medication Management Discharge Medications: electronically signed and located in the Home Medication List. - Orders Services needed: Registered Nurse, Certified Site Worker, Master Jewelry Enameler Isolation Type: Contact Isolation, Droplet Isolation Diet Recommendation: no restrictions on diet Diet Texture: Dysphagia 1 - Pureed, [place] Thick Liquids, Meds Crushed in Puree Additional Instructions: Should be on contact isolation for astrovirus through at least January 17, and until diarrhea has resolved. - Follow Up Care Current Providers and Referrals: NONE *PRIMARY CARE P,. [Primary Care Provider] - As per Instructions
[2019-01-10 12:41] VITALS: BP 139/77
--- NOTE | 2019-01-10 13:55 | ASDISCHSUM ---
Discharge Information Plan Status:SNF Medically Cleared to Leave: Discharge Date:01/10/2019 01:44 PM D/C Disposition:Jail Facility ADT D/C Disposition:Jail Facility Projected Discharge Date:01/10/2019 11:00 AM Transportation at D/C:ALS/BLS Discharge Delay Reason: Follow-Up Date:01/10/2019 11:00 AM Discharge Slot: Final Diagnosis:Gastroenteritis Placement Information Referral Type:*Long Term/SNF Referral ID:[id number] Provider Name:ROXANE Wise Address 1:[address] Address 2: Fax Number: City:[place] Selection Factors: State:[place] Patient Contact Information Contact Name:MAGGIE Relationship: Address:[address] Work Phone: City:[place] Alternate Phone: State/Zip Code:[place] [address] Email: Financial Information Financial Class:Medicaid Primary Plan Desc:[place] Primary Plan Number:[id number] Secondary Plan Desc: Secondary Plan Number: Assessment Information LACE LACE Length of stay for Answers: 3 days current admission Acuity / Level of Answers: Yes Care: Did the patient have an inpatient admission? Comorbidities - select Answers: Cerebrovascular disease all that apply (CVA, TIA, aneurysms, vasc ular dementia) Other Notes: peg tube, htn, TBI # of Emergency department Answers: 5-8 visits in the last 6 months Social determinants Answers: Mental health diagnosis (anxiety, depression, pers onality disorders, etc.) Score: 15 Date Signed: 01/10/2019 01:49 PM Electronically Signed By:Savannah Harden [facility] CM Progress Note CM Note CM Note Notes: Pt is a 63 y/o man, who normally resides at [facility], brought to the ED due to nausea, diarrhea and vomiting. When pt is medically clear he will return to [facility]. D/C Plan: [facility] Date Signed: 01/08/2019 02:54 PM Electronically Signed By:Ilene Rossi [facility] CM Progress Note CM Note CM Note Notes: Pt admitted for Gastroenteritis with history of CVA, TBI, dysphagia and aspiration PNA. Pt lives at [facility] in intermediate teacher care. Hospitalist reports diarrhea from Astrovirus has slowed, though pt had one incontinent stool today. Pt stable for d/c if BM can accomodate need for isolation due to contagion. Hung with BM to inquire and report back to CM. No therapies ordered at this time. Pt is immobile at baseline. CM to follow. Date Signed: 01/10/2019 01:48 PM Electronically Signed By:Savannah Harden Case Management Discharge Plan Note Case Management Discharge Discharge Order Complete? Answers: Yes Patient to Obtain Answers: Other Notes: [facility] Medications Transportation Arranged Answers: GERARDO [facility] Case Management Transport Answers: Yes Form Complete Faxed Final Orders Answers: Yes Agency/Facility Transfer Answers: Yes Report Printed & Faxed to Receiving Agency Family Notified Answers: Yes Notes: left messages for brothers Chaka and Kelechi Discharge Comments Notes: Pt to discharge today to [facility] where pt lives. Hung confirmed that [facility] had as isolation room available for patient for duration of symptoms. RN given number for RN report. Message left on voicemail of both brothers to call CM for update on pt status. No further CM needs noted at this time. Date Signed: 01/10/2019 01:46 PM Electronically Signed By:Savannah Harden Intervention Information
--- NOTE | 2019-01-10 14:04 | ASMTCMCOM ---
CM Note CM Note Notes: Pt admitted for Gastroenteritis with history of CVA, TBI, dysphagia and aspiration PNA. Pt lives at [facility] in retirement care. Hospitalist reports diarrhea from Astrovirus has slowed, though pt had one incontinent stool today. Pt stable for d/c if BM can accomodate need for isolation due to contagion. Hung with BM to inquire and report back to CM. No therapies ordered at this time. Pt is immobile at baseline. CM to follow. Date Signed: 01/10/2019 01:48 PM Electronically Signed By:Savannah Harden
--- NOTE | 2019-01-10 14:10 | ASMTLACE ---
BRYN Length of stay for Answers: 3 days current admission Acuity / Level of Answers: Yes Care: Did the patient have an inpatient admission? Comorbidities - select Answers: Cerebrovascular disease all that apply (CVA, TIA, aneurysms, vasc ular dementia) Other Notes: peg tube, htn, TBI # of Emergency department Answers: 5-8 visits in the last 6 months Social determinants Answers: Mental health diagnosis (anxiety, depression, pers onality disorders, etc.) Score: 15 Date Signed: 01/10/2019 01:49 PM Electronically Signed By:Savannah Harden
== END 2019-01-10 13:44 | DRG 249 ==
LOC: EDUNIT# → F3N 06:13 → OBSVTOIN 01-08 22:17
PROVIDERS: ADMIT Family Medicine; ATTEND Family Medicine
DX: A08.32 Astrovirus enteritis (principal); G93.49 Other encephalopathy; H47.619 Cortical blindness, unspecified side of brain; E86.0 Dehydration; I69.391 Dysphagia following cerebral infarction; I12.9 Hypertensive chronic kidney disease with stage 1 through stage 4 chronic kidney disease, or unspecified chronic kidney disease; N18.9 Chronic kidney disease, unspecified; E78.5 Hyperlipidemia, unspecified; F41.9 Anxiety disorder, unspecified; Z66 Do not resuscitate; Z93.1 Gastrostomy status; Z87.820 Personal history of traumatic brain injury; Z86.73 Personal history of transient ischemic attack (TIA), and cerebral infarction without residual deficits
CPT/HCPCS: 92610-GN; 96374; G0378; J2405